=== PATIENT | female | born 1940 | race Caucasian/White ===

== ENCOUNTER 2019-01-23 00:12 | Inpatient (IN) ==
[2019-01-23 01:12] LABS: BASO# 0.02 X1000 (0.0-0.2); BASO% 0.3 % (0.0-0.8); EOS# 0.15 X1000 (0.0-0.7); EOS% 2.4 % (0.0-10.0); HEMATOCRIT 27.6 % (37.0-47.0); HEMOGLOBIN 9.3 g/dL (12.0-16.0); LYMPH# 1.48 X1000 (1.2-3.4); LYMPH% 24.1 % (20.5-51.1); MCHC 33.7 g/dL (33-37); MCV 94.8 FL (81-99); MONO# 0.71 X1000 (0.11-0.59); MONO% 11.5 % (1.7-9.3); MPV 10.8 FL (7.4-10.4); NEUT# 3.79 X1000 (1.4-6.5); NEUT% 61.7 % (42.2-75.2); PLT 203 X1000 (130-400); RBC 2.91 XMIL (4.2-5.4); RDW 14.6 % (11.5-14.5); WBC 6.15 X1000 (4.8-10.8)
[2019-01-23 01:26] LABS: ALB/GLOB RATIO 1.4; ALBUMIN 3.9 g/dL (3.5-5.0); CALCIUM 8.5 mg/dL (8.8-10.2); CREATININE 2.7 mg/dL (0.5-0.9); POTASSIUM 3.3 mmol/L (3.5-5.1); TOTAL BILIRUBIN 0.3 mg/dL (0.20-1.00); TOTAL PROTEIN 6.6 g/dL (6.3-8.3)
--- NOTE | 2019-01-23 02:03 | PROVIDER DOCUMENTATION ---
This chart was entered by Joceline Johnson Scribe, acting as scribe for Azra Ordonez MD. HPI-Chest Pain - General Chief Complaint: Chest Pain Stated Complaint: cp Time Seen by Provider: 01/23/19 00:22 Source: patient Allergies/Adverse Reactions: Patient Allergies Allergy/AdvReac Type Severity Reaction Status Date / Time No Known Allergies Allergy Verified 01/23/19 00:38 Home Medications: Home Medication List Medication Instructions Recorded Confirmed Last Taken Type Insulin Aspart [Novolog Flexpen] 5 units SUBQ BID CC 05/17/18 01/23/19 01/22/19 History Insulin Detemir [Levemir Flextouch] 25 unit SUBQ HS 05/17/18 01/23/19 01/22/19 History ATORVAstatin [Lipitor] 40 mg PO DAILY 12/20/18 01/23/19 01/22/19 History Amiodarone HCl 200 mg PO DAILY 12/20/18 01/23/19 01/22/19 History Amlodipine Besylate 10 mg PO DAILY 12/20/18 01/23/19 01/22/19 History Carvedilol 25 mg PO BID 12/20/18 01/23/19 01/22/19 History Sertraline HCl 100 mg PO DAILY 12/20/18 01/23/19 01/19/19 History Vitamin B Complex 1 tab PO DAILY 12/20/18 01/23/19 01/22/19 History Apixaban [Eliquis] 2.5 mg PO BID 01/23/19 01/23/19 01/22/19 History - History of Present Illness-CP Nature of Presenting Problem: 78 yof c/o intermittent cp all day today. pain is under left breast and doesn't radiate. happens when at rest. Nothing makes it better or worse. pt sts pain stopped upon arrival to [facility]. pt has hx of afib, mi (unsure of date). pt followed by dr. henning. pt also is dialysis pt, MWF. She does not know if she has any stents Review of Systems - Adult - REVIEW OF SYSTEMS - ADULT Constitutional: reports: no symptoms reported Eyes: reports: no symptoms reported Ears, Nose, Mouth & Throat: reports: no symptoms reported Cardiovascular: reports: see HPI, chest pain. denies: palpitations, poor circulation, syncope Respiratory: reports: no symptoms reported Gastrointestinal: reports: no symptoms reported Genitourinary: reports: no symptoms reported Musculoskeletal: reports: no symptoms reported Integumentary: reports: no symptoms reported Neurological: reports: no symptoms reported Psychiatric: reports: no symptoms reported Endocrine: reports: no symptoms reported Hematologic/Lymphatic: reports: no symptoms reported Allergic/Immunologic: reports: no symptoms reported All Other Systems: Reviewed and Negative Past History - Adult - PAST MEDICAL HISTORY-ADULT Review of Records: reports: Old Records Reviewed, Nursing Assessment Review, Medications Reviewed, Social history reviewed & non-contributory. Major Childhood Illnesses: reports: denies history Cardiovascular: reports: A-Fib, HTN Respiratory: reports: denies history Gastrointestinal: reports: denies history Obstetrical/Gynecological: reports: denies history Genitourinary: reports: kidney disease (dialysis mwf) Musculoskeletal: reports: denies history Neurological: reports: denies history Psychiatric: reports: denies history Endocrine/Immune: reports: Diabetes Other Conditions: reports: denies history - PRIOR SURGERIES/PROCEDURES Surgical/Procedure History: reports: cholecystectomy, hysterectomy - IMMUNIZATION STATUS Childhood Immunizations: See Nurse Assessment Flu Vaccine: See Nurse Assessment - FAMILY HISTORY Family History: reviewed, not pertinent - SOCIAL HISTORY Smoking: other (former) Substance Use: none/never Physical Exam-General - PHYSICAL EXAM-ADULT Initial Vital Signs Reviewed: Yes - CONSTITUTIONAL General Appearance: appears well, alert, no apparent distress - EYES Eyes: PERRL/EOMI - HEAD, EARS, NOSE, MOUTH & THROAT HENMT: normocephalic/atraumatic - NECK Neck: full range of motion, supple - RESPIRATORY Respiratory: chest non-tender, lungs clear, normal breath sounds - CARDIOVASCULAR Cardiovascular: normal peripheral pulses, no edema, no murmur, irregularly irregular. negative: regular rate, rhythm, bradycardia, tachycardia - GASTROINTESTINAL (ABDOMEN) Abdominal Exam: normal bowel sounds, non tender, soft. negative: distended - MUSCULOSKELETAL Back Exam: normal inspection Extremity: normal range of motion Peripheral Pulses: radial (R): 2+, radial (L): 2+ - SKIN Integumentary: normal color, normal turgor, warm/dry - NEUROLOGIC Neurologic: grossly normal, no motor/sensory deficits - PSYCHIATRIC Psych/Mental Status: normal mood/affect, normal thought content, normal thought process, oriented x 3 - HEART Score HEART Score: History: Moderately Suspicious HEART Score: ECG: Normal HEART Score: Age: > or = 65 Years HEART Score: Risk Factors for Atherosclerotic Disease: > or = 3 Risk Factors or History of Atherosclerotic Disease HEART Score: Troponin: < or = Normal Limit Total HEART Score:: 5 Progress - PLAN OF CARE/RESULTS Progress/Plan/Lab Results: Vital Signs - 8 hr 01/23/19 00:22 01/23/19 00:47 Temperature 98.4 F Pulse Rate 87 76 Respiratory Rate 16 17 Blood Pressure 145/77 144/64 O2 Sat by Pulse Oximetry 92 L 96 Laboratory Results - last 24 hr 01/23/19 01/23/19 01/23/19 00:35 00:35 00:35 WBC 6.15 RBC 2.91 L Hgb 9.3 L Hct 27.6 L MCV 94.8 MCH 32.0 H MCHC 33.7 RDW Std Deviation 14.6 H Plt Count 203 MPV 10.8 H Immature Gran % (Auto) 0.0 Neut % (Auto) 61.7 Lymph % (Auto) 24.1 Garrett % (Auto) 11.5 H Eos % (Auto) 2.4 Baso % (Auto) 0.3 Immature Gran # (Auto) 0.00 Neut # (Auto) 3.79 Lymph # (Auto) 1.48 Garrett # (Auto) 0.71 H Eos # (Auto) 0.15 Baso # (Auto) 0.02 Sodium 129 L Potassium 3.3 L Chloride 92 L Carbon Dioxide 23 L Anion Gap 14 BUN 45 H Creatinine 2.7 H Estimated GFR/1.73 m2 17 BUN/Creatinine Ratio 17 Glucose 138 H Calculated Osmolality 273 Calcium 8.5 L Total Bilirubin 0.30 AST 32 H ALT 26 Alkaline Phosphatase 207 H Creatine Kinase Troponin T 0.037 Total Protein 6.6 Albumin 3.9 Globulin 2.7 Albumin/Globulin Ratio 1.4 01/23/19 00:35 WBC RBC Hgb Hct MCV MCH MCHC RDW Std Deviation Plt Count MPV Immature Gran % (Auto) Neut % (Auto) Lymph % (Auto) Garrett % (Auto) Eos % (Auto) Baso % (Auto) Immature Gran # (Auto) Neut # (Auto) Lymph # (Auto) Garrett # (Auto) Eos # (Auto) Baso # (Auto) Sodium Potassium Chloride Carbon Dioxide Anion Gap BUN Creatinine Estimated GFR/1.73 m2 BUN/Creatinine Ratio Glucose Calculated Osmolality Calcium Total Bilirubin AST ALT Alkaline Phosphatase Creatine Kinase 56 Troponin T Total Protein Albumin Globulin Albumin/Globulin Ratio Orders Category Date Time Status CHEST-2 VIEWS [RAD] Stat Exams 01/23/19 00:56 Taken CBC WITH ELECTRONIC DIFF [HEME] Stat Lab 01/23/19 00:35 Completed CK PROFILE [SP CHEM] Stat Lab 01/23/19 00:35 Completed COMPREHENSIVE METABOLIC PANEL [CHEM] Stat Lab 01/23/19 00:35 Completed TROPONIN T Stat Lab 01/23/19 00:35 Completed EKG [EKG] Stat Ther 01/23/19 00:03 Ordered Result Diagrams: 01/23/19 00:35 01/23/19 00:35 - EKG 1 Time of EKG reading by physician:: 00:15 EKG Read and Signed by:: Azra Ordonez EKG Interpretation (*Must complete 3 of following elements*): Abnormal Rate: 86 Rhythm: Atrial fibrillation ST Wave: non-specific ST changes Prior EKG Comparison: unchanged from prior - XRAY 1 XRAY Study: Chest (Cardiomegaly with atelectasis) - CONSULTS/PCP/HOSPITALIST Notification #1 *Consult/PCP/Hospitalist*: Dr Spangler Time Discussed: 01:45 Consult Disposition: Admit Departure - Departure Date of Disposition Decision: 01/23/19 Time of Disposition Decision: 01:57 DIAGNOSIS: Chest pain, Atrial fibrillation, End stage renal disease, Chronic anemia Disposition: ADMITTED INPATIENT 09 Certified Medical Emergency: Emergent Condition: Stable Referrals and Follow-Ups: Matthew Henning DO [Primary Care Provider] - - Critical Care Note This patient required my direct & personal management of CC.: No Attestation - Physician/ LYNN Attestation Patient care was provided by Advanced Practice Provider:: No The physician spent face to face time with patient:: Yes Advanced Practice Provider documentation review:: Supervising physician onsite and consulted in the evaluation and care of this patient. The physician did have a face to face encounter with the patient. This chart was documented by the indicated scribe, (Joceline Johnson Scribe) and accurately reflects the services I performed and decisions made by me, Azra Hughes MD, as attested by the provider's signature.
--- NOTE | 2019-01-23 04:37 | HISTORY AND PHYSICAL ---
PRIMARY CARE PHYSICIAN: Dr. Matthew Henning. CHIEF COMPLAINT: Chest pain. HISTORY OF PRESENTING ILLNESS: An 78-year-old female with a history of end-stage renal disease, hypertension, diabetes mellitus type 2, who had presented to emergency department with complaint of having chest pain. She states that it was sharp and intermittent and it seemed to be worsening. She was evaluated in the emergency department and due to her presenting symptoms it was thought that we will place her for observation for further evaluation and management. At the time of my examination, patient denied any headache, fever, chills, nausea, vomiting, diarrhea, hemoptysis, melena or weight changes, but complained of chest pain. PAST MEDICAL HISTORY: Includes end-stage renal disease, on renal dialysis Wednesday, Wednesday, Wednesday, hypertension, diabetes mellitus type 2. PAST SURGICAL HISTORY: Hysterectomy, appendectomy, left eye surgery. ALLERGIES: No known drug allergies. CURRENT MEDICATIONS: Include amiodarone 200 mg p.o. daily, amlodipine 10 mg p.o. daily, Eliquis 2.5 mg p.o. b.i.d., Lipitor 40 mg p.o. daily, carvedilol 25 mg p.o. b.i.d., Levemir 25 units subcutaneous at bedtime, Zoloft 100 mg p.o. daily. SOCIAL HISTORY: She is a former smoker. Admits to social alcohol use. Denies any illicit drug use. FAMILY HISTORY: Positive for coronary artery disease in mother and father. REVIEW OF SYSTEMS: Fourteen point review of system as listed in HPI. Other systems negative. PHYSICAL EXAMINATION: GENERAL: Cooperative, friendly female. She is resting more comfortably now. VITAL SIGNS: Temperature 98.4 degrees, pulse 87, respirations 16, blood pressure 145/77. HEENT: Atraumatic, normocephalic. Extraocular movements intact. PERRLA. NECK: Supple. CHEST: Clear to auscultation. CARDIOVASCULAR: Regular rate and rhythm. ABDOMEN: Soft. Positive bowel sounds. EXTREMITIES: No edema. NEUROLOGIC: She is awake, alert, oriented x3. GENITOURINARY: No bladder distention. SKIN: Warm. LABORATORIES AND STUDIES: Sodium 129, potassium 3.3, chloride 92, CO2 is 23, BUN is 45, creatinine is 2.7, glucose 138. Troponin 0.037. WBC 6.15, hemoglobin 9.3, hematocrit 27.6, platelets 203,000. ASSESSMENT: An 78-year-old female with a history of end-stage renal disease, hypertension, diabetes mellitus type 2, who had presented to the emergency department with a 1-day history of having chest pain. We will place the patient for observation for further evaluation and management. 1. Chest pain. 2. End-stage renal disease. 3. Hypertension. 4. Diabetes mellitus type 2. PLAN: 1. We will admit patient to medical floor with telemetry. 2. Continue with cardiac workup. Check EKG, serial cardiac enzymes. Have patient continue on aspirin. We will use sublingual nitroglycerin p.r.n. chest pain. 3. We will consult Cardiology. 4. Consult Nephrology for dialysis. 5. We will monitor blood pressure and resume antihypertensive agent. 6. We will put patient on glycemic protocol with sliding scale insulin regimen. 7. The patient is on Eliquis and this will suffice for her DVT prophylaxis. cc: James Spangler MD
[2019-01-23 05:52] LABS: URINE SOURCE CLEAN CATCH
[2019-01-23 05:53] LABS: BILIRUBIN URINE NEGATIVE (NEGATIVE); BLOOD URINE NEGATIVE (NEGATIVE); COLOR YELLOW; GLUCOSE URINE NEGATIVE (NEGATIVE); KETONE URINE NEGATIVE (NEGATIVE); LEUKOCYTES URINE NEGATIVE (NEGATIVE); NITRITE URINE NEGATIVE (NEGATIVE); PROTEIN URINE 200 mg/dL (NEGATIVE); SP GRAVITY URINE 1.007; TURBIDITY URINE CLEAR (CLEAR); UROBILINOGEN URINE NORMAL (NORMAL)
[2019-01-23 05:55] LABS: UR EPITHELIAL CELLS <10 /HPF (<10); URINE BACTERIA NEGATIVE /HPF; URINE RBC <10 /HPF (<10); URINE WBC <10 /HPF (<10)
[2019-01-23] MEDS: HUMULIN R SUBQ SCH ×4 (06:00→21:15)
--- NOTE | 2019-01-23 06:28 | Diag Imaging Result Doc PS360 ---
CHEST-2 VIEWS - 01/23/2019 INDICATION: short of breath COMPARISON: 12/29/2018 FINDINGS: Stable right dialysis catheter in good position. Stable cardiomegaly. Pulmonary vascularity is normal. Stable trace left pleural effusion. IMPRESSION: No change from prior. Electronically signed by Steve Freitas 01/23/2019 6:25 AM
[2019-01-23] MEDS ORDERED: NS 2,000 ML MISC PRN (07:25)
[2019-01-23] MEDS ORDERED: HEPARIN IV PRN (07:25)
[2019-01-23] MEDS ORDERED: TIGHT: 0.2 ML/HR FOR DIALYSIS MISC PRN (07:25)
--- NOTE | 2019-01-23 09:17 | EKG Report ---
Test Performed on : 01/23/2019 00:15:30 AM Test Reason : cp Blood Pressure : / mmHG Vent. Rate : 086 BPM Atrial Rate : 113 BPM P-R Int : 000 ms QRS Dur : 088 ms QT Int : 416 ms P-R-T Axes : 000 073 057 degrees QTc Int : 497 ms Atrial fibrillation. Low voltage QRS Anterolateral infarct (cited on or before 17-MAY-2018) Abnormal ECG When compared with ECG of 25-DEC-2018 08:27, (Unconfirmed) Questionable change in initial forces of Lateral leads Unconfirmed Result
[2019-01-23] MEDS: COREG PO SCH ×2 (09:33→21:13)
[2019-01-23] MEDS: ELIQUIS PO SCH ×2 (09:43→21:14)
[2019-01-23] MEDS: CORDARONE PO SCH ×2 (09:49→21:15)
[2019-01-23] MEDS: NORVASC PO SCH ×2 (09:50→21:14)
[2019-01-23] MEDS: ZOLOFT PO SCH ×2 (09:50→21:13)
[2019-01-23] MEDS: VICON-C PO SCH ×2 (09:50→21:14)
[2019-01-23] MEDS: LIPITOR PO SCH ×2 (09:51→21:14)
--- NOTE | 2019-01-23 11:30 | Diag Imaging Result Doc PS360 ---
CT THORAX W/O CONTRAST - 01/23/2019 INDICATION: chest pain, SOB COMPARISON: Chest x-ray from this morning FINDINGS: There is a right-sided dialysis catheter in good position with the tip at the lower SVC. There is cardiomegaly. There are trace bilateral pleural effusions. No adenopathy. Upper abdominal images are grossly normal. There is ill-defined bilateral interstitial infiltrate. There is also some intralobular septal thickening in the lung bases. This is highly characteristic of pulmonary edema/volume overload. The airways are clear. Bony structures are intact. There is advanced spondylosis throughout the thoracolumbar spine. IMPRESSION: Cardiomegaly. Pulmonary edema/volume overload. Trace bilateral pleural effusions. This exam was performed using automated exposure control, adjustment of mA or kV according to patient size, and/or use of iterative reconstruction technique Electronically signed by Steve Freitas 01/23/2019 11:27 AM
[2019-01-23] MEDS: NORCO-5 PO PRN ×2 (16:58→21:15)
--- NOTE | 2019-01-23 17:55 | CARDIOLOGY CONSULTATION ---
DATE: 01/23/2019 CONSULTATION REQUESTED BY: Hospitalist service. REASON FOR CONSULTATION: Patient with chest pain and dyspnea. HISTORY: Ms. Rodriguez presented to the emergency room shortly after midnight with complaint of several days of increasing dyspnea on exertion associated on the hours prior to admission with intermittent chest discomfort. She describes the pain as sharp, waxing and waning, and eventually became steady pain. It did not seem to radiate. She was coughing up some bloody sputum. She felt congested. The patient in the ER received a chest x-ray that shows stable cardiomegaly with "normal" pulmonary vascularity. A chest CT has been requested and that shows cardiomegaly, pulmonary edema, volume overload with trace bilateral pleural effusions. The patient says that the pain that brought her to the emergency room is different than the pain that she experienced with a myocardial infarction 2 months prior. PAST HISTORY: Positive for myocardial infarction about 2 months prior to this presentation. At that time, the coronary arteriogram revealed a totally occluded diagonal vessel distally. It is very suspicious for embolization. She received urgent percutaneous intervention. The other arteries appeared to be relatively free of obstruction. She does have end-stage renal disease and has been on hemodialysis. She has diabetes mellitus type 2, hypertension, dyslipidemia. SURGICAL HISTORY: Hysterectomy, appendectomy, and left eye surgery. SOCIAL HISTORY: She is , lives with . She has been a smoker and occasional alcohol. FAMILY HISTORY: Both parents had coronary heart disease. ALLERGIES: Negative. HOME MEDICATIONS: Listed, amiodarone 200 daily, amlodipine 10 mg daily, apixaban 2.5 twice a day, atorvastatin 40 mg daily, carvedilol 25 twice a day, insulin aspartate 5 units twice a day and detemir 25 units at bedtime. Sertraline 100 daily, vitamin B complex once a day. ALLERGIES: No reported allergies. REVIEW OF SYSTEMS: Lately, she has felt like she is having "chest congestion." She has been bothered by severe back pain with pain and weakness of both lower extremities. She has been evaluated by Dr. Rodriges a neurosurgeon in [place] and they were planning on performing back surgery in the ensuing days or weeks. She was awaiting cardiac clearance. No other positives. The patient does have a history of previous bouts of atrial fibrillation requiring cardioversion. At this time, she is seemingly in permanent atrial fibrillation. PHYSICAL EXAMINATION: Vital signs: Blood pressure 166/73, pulse 88, temperature 97.6 degrees, respirations 18. General: She is awake, appears to be chronically ill, elderly, in no distress. Neck: Veins slightly prominent. Chest: Diminished breath sounds especially at the right base. Occasions of crepitans scattered. Some rhonchi and some occasional end-expiratory wheezing. Heart: Sounds are irregularly irregular without gallop or murmur. Abdomen: Soft. There is no peripheral edema. Neurologic: Nonfocal. Moves 4 extremities. LABORATORY DATA: Hemoglobin 9.3, hematocrit 27.6, white cell count 6150. Sodium 139, potassium 3.3, chloride 92, carbon dioxide 23, BUN 45, creatinine 2.7. Troponins have been checked a total of 3 times: 0.037; 0.037; 0.037. This is like 5 hours apart from each other. C-reactive protein is 14.22 mg/L. Her proBNP has not been checked. IMPRESSION: 1. Patient who presents with chest pain that is different from the pain that she experienced during myocardial infarction 2 months ago. 2. Increasing dyspnea with radiographic features of fluid overload. 3. Slight hemoptysis probably related to congestive heart failure, fluid overload. 4. End-stage renal disease on hemodialysis. 5. Diabetes mellitus type 2. 6. Chronic back pain with anticipated back surgery in the next few days. RECOMMENDATION: At this time, I would pursue a myocardial perfusion stress test. This should help us to make sure that there is no residual ischemia on her and they may proceed with the back surgery whenever appropriate by Dr. Reynoso and the neurosurgeons from [place]. At this time, she appears to be fluid overloaded, so she really needs to proceed with hemodialysis. Further advice will be forthcoming. cc: Peter Lloyd MD
--- NOTE | 2019-01-23 18:41 | NEPHROLOGY CONSULTATION ---
DATE: 01/23/2019 REASON FOR ADMISSION: Chest pain. REASON FOR CONSULTATION: Assist with management, end-stage renal disease. CONSULTING PHYSICIAN: James Spangler MD HISTORY OF PRESENT ILLNESS: This is an 78-year-old female well known to our service for end-stage renal disease on hemodialysis Wednesday, Wednesday, Wednesday. She came into the emergency room secondary of chest pain. She was admitted for further workup and treatment. Today is her routine dialysis day. We have been asked to see her and assist with management. Cardiology has already seen the patient. They plan on a chest CT secondary to her chest pain being atypical and somewhat different than her previous admissions with cardiac issues. They will have her undergo a portion of a resting nuclear scan today as well. The patient denies any nausea, vomiting, fevers or chills. Continues to have some modest chest pain that does not radiate. PAST MEDICAL HISTORY: End-stage renal disease Wednesday, hypertension, diabetes, atrial fibrillation, depression and anxiety. PAST SURGICAL HISTORY: Hysterectomy, appendectomy, left eye surgery. She has a tunneled catheter to the right upper chest wall. ALLERGIES: None. HOME MEDICATIONS: Listed as amiodarone, amlodipine, Eliquis, Lipitor, carvedilol, Levemir and Zoloft. FAMILY HISTORY: Coronary artery disease. SOCIAL HISTORY: She is a former smoker. Social ETOH. No illicit drug use. REVIEW OF SYSTEMS: Pertinent positives noted above in the HPI. PHYSICAL EXAMINATION: Vital Signs: Temperature 97.6 degrees, pulse 88, respiratory rate 19, blood pressure 166/73. Intake not measured. Output 200 mL voided. General: This is an elderly female, sitting up in bed. She is awake and alert. She is in no acute distress. HEENT: Normocephalic, atraumatic. Her conjunctivae are pale. Oral mucosa moist. Neck: Supple. There is no JVD. Cardiovascular: Reveals controlled rate. No murmur or gallop. Pulmonary: She is clear bilaterally. Abdomen: Soft, obese. Positive bowel sounds. Genitourinary: Not inspected. Extremities: No clubbing or cyanosis. She may have some trace pedal edema. Integumentary: Skin is warm and dry, pale. Neurologic: Grossly nonfocal. LABORATORY DATA: WBC of 6.1, hemoglobin 9.3, sodium 129, potassium 3.3, CO2 23, BUN 45, creatinine 2.7. ASSESSMENT AND PLAN: 1. End-stage renal disease management. Today is her routine dialysis day. We will dialyze her on a 2 K bath/UF to her dry weight/3.5 hour treatment. I did discuss with Cardiology that we would wait until after they completed their testing and evaluations this morning, and we will plan to run her this afternoon. 2. Atypical chest pain followed by Cardiology and primary. 3. Electrolytes, acid-base balance anemia. See above for plan. Continue her EPO. Dictated by BRAD Dodson for Rex Caceres MD Face to face encounter, data reviewed, discussed with Fernanda Ponce on 01/23/19. I agree with the above assessment and plan of care. cc: Rex Caceres MD [facility]
[2019-01-24] MEDS: NORCO-5 PO PRN ×5 (04:29→22:42)
[2019-01-24] MEDS: HUMULIN R SUBQ SCH ×5 (06:53→20:05)
[2019-01-24 07:00] LABS: HEMATOCRIT 26.9 % (37.0-47.0); HEMOGLOBIN 8.7 g/dL (12.0-16.0); MCHC 32.3 g/dL (33-37); MCV 98.9 FL (81-99); MPV 10.3 FL (7.4-10.4); RBC 2.72 XMIL (4.2-5.4); RDW 14.9 % (11.5-14.5); WBC 6.09 X1000 (4.8-10.8)
[2019-01-24 07:20] LABS: CALCIUM 8.1 mg/dL (8.8-10.2); POTASSIUM 2.9 mmol/L (3.5-5.1)
--- NOTE | 2019-01-24 07:37 | EKG Report ---
Test Performed on : 01/24/2019 07:05:53 AM Test Reason : chest pain Blood Pressure : / mmHG Vent. Rate : 084 BPM Atrial Rate : 117 BPM P-R Int : 000 ms QRS Dur : 094 ms QT Int : 420 ms P-R-T Axes : 000 -72 096 degrees QTc Int : 496 ms Atrial fibrillation. Left anterior fascicular block Septal infarct (cited on or before 17-MAY-2018) Lateral infarct (cited on or before 17-MAY-2018) Abnormal ECG When compared with ECG of 23-JAN-2019 00:15, (Unconfirmed) Left anterior fascicular block is now present Confirmed by Sanjuanita BOSS, Don Singh ([id number]) on 01/25/2019 9:43:08 AM
[2019-01-24] MEDS ORDERED: LEXISCAN ONE ×2 (08:19→11:43)
--- NOTE | 2019-01-24 08:34 | Diag Imaging Result Doc PS360 ---
EXAM: CHEST-2 VIEWS HISTORY: reassess pulmonary edema TECHNIQUE: Chest two views COMPARISON: 01/23/2019 FINDINGS: There is a small left pleural effusion. The heart is enlarged. Mild vascular distention. This is slightly less prominent than on the prior study. No change in the right jugular line. IMPRESSION: Mild interval improvement. Electronically signed by Fermin Burkett 01/24/2019 8:32 AM
[2019-01-24] MEDS ORDERED: POTASSIUM CHLORIDE 10% LIQUID PO ONE (08:36)
--- NOTE | 2019-01-24 09:10 | NEPHROLOGY PROGRESS NOTE ---
DATE: 01/24/2019 SUBJECTIVE: The patient is currently sitting up in bed. She continues to have some chest heaviness. OBJECTIVE: Vital Signs: Temperature 98.5 degrees, pulse 88, respiratory rate 18, blood pressure 120/69. Intake 400 mL, output 5.6 L on dialysis. General: Elderly female, sitting up in bed, awake and alert. She is in no acute distress. HEENT: Normocephalic, atraumatic. NEAL. Oral mucosa moist. Neck: Supple, without JVD. Cardiovascular: Regular rate and rhythm. Pulmonary: She has decreased breath sounds, but no rales or rhonchi. Abdomen: Soft with positive bowel sounds. : Not inspected. Extremities: Trace edema. Integumentary: Skin is warm and dry. LABORATORY DATA: Pending. ASSESSMENT AND PLAN: 1. Chronic kidney disease stage 5D. We dialyzed yesterday. We did pull 5.6 liters. Concerning that she may still have some additional fluid on. We are ordering a chest x- ray this morning. If it appears so, we will dialyze her today for ultrafiltration removal only. 2. Anemia of chronic disease. Continue Epogen. CXR modestly improved. Repeat dialysis today. rg Dictated by BRAD Dodson for Rex Caceres MD cc: Rex Caceres MD [facility]
[2019-01-24] MEDS ORDERED: HEPARIN IV PRN (09:14)
[2019-01-24] MEDS ORDERED: NS 2,000 ML MISC PRN (09:14)
[2019-01-24] MEDS ORDERED: TIGHT: 0.2 ML/HR FOR DIALYSIS MISC PRN (09:14)
[2019-01-24] MEDS: COREG PO SCH ×2 (09:48→20:03)
[2019-01-24] MEDS: ELIQUIS PO SCH ×2 (09:50→20:03)
--- NOTE | 2019-01-24 13:44 | PROGRESS NOTE ---
DATE: 01/24/2019 SUBJECTIVE: Ms. Rodriguez was admitted on 01/23/2019, is a patient of Dr. Matthew Torres. She came in with chest pain. An 78-year-old with history of end-stage renal disease, hypertension, diabetes mellitus type 2, presented to emergency department complaining of having chest pain. States that she had sharp, intermittent pain. It seemed to be worsening. Evaluated the emergency room, placed on observation. She is presently getting GXT by report. No further pain. OBJECTIVE: Vital Signs: Temperature 98.2 degrees, pulse 79, respirations 18, blood pressure 124/66. HEENT: Pupils are equal. Lungs: Clear in all lung medina. Cardiovascular: Regular rhythm and rate without murmur or S3. Abdomen: Soft. Skin: Warm and dry. RADIOLOGIC STUDIES: Her chest x-ray this morning showed mild improvement. Small left pleural effusion. Heart enlarged. Mild vascular distention. ASSESSMENT AND PLAN: 1. Nephrology is following. Feels has end-stage renal disease. Gets dialysis and underwent dialysis yesterday. 2. Atypical chest pain. 3. Electrolytes and acid base look good. Cardiology has evaluated. This pain is different than what she experienced in her myocardial infarction 2 months ago and increasing dyspnea. Radiographic features suggest fluid overload. Slight hemoptysis related to congestive heart failure and fluid overload. 4. Diabetes mellitus type 2. Continue to follow sugars. 5. Chronic back pain. Anticipating back surgery soon. So we will see what the myocardial perfusion test shows. Reviewed her current orders. She is on amiodarone 200 mg a day, Norvasc 10 mg a day, Eliquis 2.5 mg b.i.d., Lipitor 40 mg a day, Coreg 25 mg b.i.d., Epogen 10,000 units subcutaneously Wednesday, Wednesdays, and Fridays, hydrocodone 5 mg q.4 h. p.r.n., Zoloft 100 mg a day. REVIEW OF LABS: Hematocrit 26, hemoglobin 8.7. Electrolytes: Sodium 134, potassium 2.9, chloride 95, BUN 25, creatinine 2.0. cc: Don Gann MD
--- NOTE | 2019-01-24 15:06 | Diag Imaging Result Document ---
PROCEDURE NAME: MYOCARDIAL PERF SCAN, STR/REST - 01/23/2019 STUDY: Two day rest/stress Lexiscan myocardial perfusion study. INDICATION: The patient presented with chest pain. She has end-stage renal disease. She has suffered an acute myocardial infarction about 2 months prior to this admission requiring percutaneous intervention at the level of the territory of the second diagonal branch of the LAD. DESCRIPTION: The patient came into the nuclear laboratory on 01/23, received a resting injection of technetium 99 sestamibi 25 mCi. Multiple tomographic views of the heart were obtained at rest. Subsequently, the patient underwent Lexiscan protocol at 0.4 mg on 01/24. At that time, she received an injection of 27.2 mCi technetium 99 sestamibi at peak infusion. Multiple tomographic views of the cardiac structure were obtained following the completion of the protocol. SUMMARY OF THE ELECTROCARDIOGRAPHIC PORTION OF THE STUDY: Resting electrocardiogram showed sinus rhythm, rate is 83 beats per minute. Resting ECG shows evidence of an anterolateral myocardial infarction with a left axis deviation. Resting blood pressure 138/57. During the protocol, the heart rate increased to a maximum of 83 beats per minute. Blood pressure changed from baseline down to 112/52. Heart rate also slowed down to 72 beats per minute. The patient reported no chest pain, shortness of breath, or palpitations. Actually, the ECG showed atrial fibrillation with controlled rate. There was no sinus rhythm identified on this tracing. In summary, electrocardiographic response to infusion of Lexiscan is deemed to be negative for pharmacologic-induced myocardial ischemia. The patient is in atrial fibrillation. There is evidence of an anterolateral myocardial infarction. SUMMARY OF THE MYOCARDIAL PERFUSION PORTION OF THE STUDY: Poststress tomographic views of the left ventricle showed a moderate in size severe in intensity distal anterolateral defect. The rest images showed that this defect is fixed. There is no evidence of reversibility. The polar plots revealed the same. There are no areas of inducible ischemia. There is a moderate size distal anterolateral scar. Gated SPECT shows on the rest images ejection fraction of 53% with anteroapical dyskinesis. Poststress ejection fraction is 57%. Ventricular volumes are increased. The Myometrix protocol showed basically similar findings. The resting ejection fraction was 53% and the poststress is 59%, so the pretty much coincide. That is a normal change from rest to stress. The lung/heart ratio is elevated at 0.48. TID is 0.98. SUMMARY: This study shows: 1. Abnormal resting electrocardiogram. The patient is in atrial fibrillation with controlled rate with evidence of an anterolateral scar. No ischemia noted with the infusion of Lexiscan by ECG criteria. 2. Abnormal poststress myocardial perfusion scan. There is scintigraphic evidence of an anterolateral scar of moderate extent in the distal portion of the anterolateral wall. That would be consistent with the patient's history of a myocardial infarction in the territory of the diagonal branch of the LAD. There is no inducible ischemia. 3. Generally preserved left ventricular systolic function, ejection fraction poststress 57% with anteroapical dyskinesis consistent with a previous anterolateral scar. Clinical correlation is strongly recommended. cc: MD Sushma Sloan PA MTDD
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
[2019-01-24] MEDS: NORVASC PO SCH (18:41)
[2019-01-24] MEDS: LIPITOR PO SCH (18:42)
[2019-01-24] MEDS: VICON-C PO SCH (18:43)
[2019-01-24] MEDS: CORDARONE PO SCH (18:43)
[2019-01-24] MEDS: ZOLOFT PO SCH (18:44)
--- NOTE | 2019-01-24 20:40 | Diag Imaging Result Doc PS360 ---
EXAM: CT THORAX W/O CONTRAST INDICATION: hemoptysis TECHNIQUE: This exam was performed using automated exposure control, adjustment of mA or kV according to patient size, and/or use of iterative reconstruction technique. COMPARISON: 01/23/2019 FINDINGS: The patchy groundglass infiltrates seen bilaterally on the previous recent study, more prominent on the right, have improved slightly. No new consolidations are appreciated. Bilateral small pleural effusions are again identified. The effusion on the right has decreased in size. The effusion on the left is approximately stable. There is pleural thickening around the fluid collection at the left lung base suggesting a possible complex effusion. There is a stable small pericardial effusion and stable cardiomegaly. Shotty nonspecific mediastinal and hilar lymph nodes are unchanged. IMPRESSION: 1.Modest improvement of the bilateral infiltrates, worse on the right. 2.Interval decrease in size of the small right pleural effusion and stable small left pleural fluid collection with pleural thickening at its periphery. Electronically signed by Seferino Johnson 01/24/2019 8:37 PM
--- NOTE | 2019-01-24 20:50 | Diag Imaging Result Doc PS360 ---
EXAM: CT MAXILLOFACIAL(SINUS) W/O CO INDICATION: sinusitis TECHNIQUE: COMPARISON: None. FINDINGS: The paranasal sinuses are clear. There is no sinus mucosal thickening and no air-fluid levels in the paranasal sinuses. The ostiomeatal units are patent bilaterally. The mastoid air cells are clear. The visualized bony structures are intact. Surrounding soft tissues are essentially unremarkable. IMPRESSION: Essentially unremarkable CT of the paranasal sinuses with no CT evidence of sinusitis. Electronically signed by Seferino Johnson 01/24/2019 8:48 PM
[2019-01-25] MEDS: NORCO-5 PO PRN ×4 (05:49→20:10)
[2019-01-25] MEDS ORDERED: HEPARIN IV PRN (06:16)
[2019-01-25] MEDS ORDERED: NS 2,000 ML MISC PRN (06:16)
[2019-01-25] MEDS ORDERED: TIGHT: 0.2 ML/HR FOR DIALYSIS MISC PRN (06:16)
[2019-01-25] MEDS: HUMULIN R SUBQ SCH ×4 (06:35→20:11)
--- NOTE | 2019-01-25 07:52 | EKG Report ---
Test Performed on : 01/25/2019 06:33:25 AM Test Reason : chest pain Blood Pressure : / mmHG Vent. Rate : 084 BPM Atrial Rate : 088 BPM P-R Int : 000 ms QRS Dur : 086 ms QT Int : 406 ms P-R-T Axes : 000 124 073 degrees QTc Int : 479 ms Atrial fibrillation. Low voltage QRS Anterolateral infarct (cited on or before 17-MAY-2018) Abnormal ECG When compared with ECG of 24-JAN-2019 07:05, (Unconfirmed) Left anterior fascicular block is no longer present Confirmed by Sanjuanita BOSS, Don Singh ([id number]) on 01/25/2019 9:44:33 AM
[2019-01-25] MEDS: ZOLOFT PO SCH (08:29)
[2019-01-25] MEDS: VICON-C PO SCH (08:29)
[2019-01-25] MEDS ORDERED: EPOGEN SUBQ SCH (09:00)
[2019-01-25] MEDS: ELIQUIS PO SCH ×2 (13:24→20:10)
[2019-01-25] MEDS: CORDARONE PO SCH (13:24)
[2019-01-25] MEDS: NORVASC PO SCH (13:24)
[2019-01-25] MEDS: COREG PO SCH ×2 (13:24→20:10)
[2019-01-25] MEDS: LIPITOR PO SCH (13:24)
--- NOTE | 2019-01-25 16:33 | PROGRESS NOTE ---
DATE: 01/25/2019 SUBJECTIVE: Ms. Mcqueen is feeling much better. Breathing comfortably. She has finished up her tests, and everything looks good from a cardiac standpoint. OBJECTIVE: Temperature 98.3 degrees, pulse 98, respirations 18, blood pressure 130/51. Pupils are equal and round. Lungs are clear in all lung medina. Cardiovascular: Regular rhythm and rate without murmur or S3. Abdomen is soft. Skin is warm and dry. Dialysis removed 4 L yesterday. ASSESSMENT AND PLAN: 1. Dr. Álvarez was consulted. They were trying to prepare her for some back surgery, and she had an elevated CRP. She did have some tenderness in the left maxillary sinus area and the patient was having some night sweats, so Dr. Álvarez ordered a maxillofacial CT and chest CT. Essentially unremarkable CT of paranasal sinuses. No CT evidence of sinusitis. Chest CT: Modest improvement of bilateral infiltrates, worse on the right. Interval decrease in size of small right pleural effusion. Stable small left pleural fluid. I think blood cultures were ordered. We will discuss with Dr. Álvarez. Hopefully, she can go home tomorrow. They wanted know if they can pursue lower back surgery per Dr. Reynoso. 2. Atypical chest pain. No sign of active cardiac ischemia. 3. End-stage renal disease. Electrolytes and acid/base look good. 4. Diabetes mellitus, type 2. Sugars under good control. 5. Lower back pain, degenerative disk disease, and surgery is being planned per Dr. Reynoso. REVIEW OF ORDERS: I do not see any change. cc: Don Gann MD
--- NOTE | 2019-01-25 17:25 | NEPHROLOGY PROGRESS NOTE ---
DATE: 01/25/2019 SUBJECTIVE: She states she is feeling well. No shortness of breath. On room air. Still having some pain in her flank. OBJECTIVE: Blood pressure 110/56, heart rate 91, respirations 18, afebrile. Generally, no acute distress. Skin is warm and dry. Neck veins are not distended. Heart is regular. No gallops. Lungs are equal. No crackles or wheezes. Abdomen is soft, nontender. Bowel sounds present.Extremities: No edema, clubbing or cyanosis. IMPRESSION AND PLAN: Chronic kidney disease stage 5D. Volume overload. Dialysis again today. Four potassium bath. Goal of 2 to 3 L ultrafiltration. cc: Rex Caceres MD
--- NOTE | 2019-01-25 18:09 | INFECTIOUS DISEASE PROGRESS NO ---
DATE: 01/25/2019 PRESENT ILLNESS: The patient has hemoptysis which is clearing. I think it is due to pulmonary venous congestion. At this time, I doubt that the patient has an active infection. MEDICATIONS: The patient is not receiving any antibiotics. PHYSICAL EXAMINATION: Vital Signs: Temperature is 98.3 degrees, pulse 91, respirations 18, blood pressure 110/56. General: This is a somewhat ill-appearing elderly female. She is in no acute distress. Head, Eyes, Ears, Nose, and Throat: I did not see any white patches on her tongue. She does not have any drainage from her nose or ears. Neck: She does not have any pain in her neck when she moves her head. Lungs: Clear to auscultation. Cardiovascular: Heart rate is irregular. Abdomen: Soft and nontender. Thorax: Patient has a tunneled dialysis catheter present on the right side. The site is not draining or tender. Neurologic: Patient is alert. She can move her extremities. There is no tremor. DIAGNOSTIC STUDIES: The CT of the sinuses shows no sinusitis. CT of the chest shows improvement in the bilateral infiltrates. CBC shows a white count of 6090, hemoglobin 8.7, and platelet count 221,000. Creatinine is 2, GFR is 24. Urinalysis is negative for bacteria and white cells. ASSESSMENT AND PLAN: At this time, I doubt the patient has an active infection. I am going to go ahead tomorrow morning and get blood cultures and a QuantiFERON Fold study. As mentioned above, I do not think the patient has an active infection. I am signing off the patient's case, but I am available to see her on a p.r.n. basis. If her blood cultures return positive or the QuantiFERON, I will get in touch with the patient as soon as possible. PATIENT'S COMORBIDITIES: 1. She is elderly. 2. She has had a myocardial infarction. 3. She also is a diabetic. cc: Tremayne Álvarez MD
[2019-01-26] MEDS: NORCO-5 PO PRN ×3 (03:49→13:40)
[2019-01-26] MEDS: HUMULIN R SUBQ SCH ×2 (06:08→10:53)
[2019-01-26] MEDS: NORVASC PO SCH (08:27)
[2019-01-26] MEDS: ELIQUIS PO SCH (08:27)
[2019-01-26] MEDS: VICON-C PO SCH (08:27)
[2019-01-26] MEDS: LIPITOR PO SCH (08:27)
[2019-01-26] MEDS: ZOLOFT PO SCH (08:28)
[2019-01-26] MEDS: COREG PO SCH (08:28)
[2019-01-26] MEDS: CORDARONE PO SCH (08:28)
[2019-01-26 12:23] VITALS: BP 116/41
--- NOTE | 2019-01-26 12:58 | NEPHROLOGY PROGRESS NOTE ---
DATE: 01/26/2019 SUBJECTIVE: She is expecting discharge today. No further pain. No shortness of breath. OBJECTIVE: Vital Signs: Blood pressure 119/95, heart rate 84, afebrile. General: No acute distress. Skin: Warm and dry. HEENT: Conjunctivae are pink. Heart: Regular. No gallops. Lungs: Equal. No crackles. Abdomen: Soft, nontender. Bowel sounds present. Extremities: No edema, clubbing, or cyanosis. IMPRESSION: Chronic kidney disease 5D. Her next planned dialysis treatment is tomorrow which she can attend at the outpatient clinic. Otherwise, no new data are available. We will change her outpatient dialysis potassium to 3.0. cc: Rex Caceres MD
--- NOTE | 2019-01-26 14:02 | DISCHARGE SUMMARY ---
ADMISSION DATE: 01/23/2019 DISCHARGE DATE: Ms. Rodriguez is anxious to go home, feels much better, breathing comfortably, no pain. Her doctor is Dr. Matthew Torres. She presented on 01/23/2019, plan on discharging her today on 01/26/2019. This is an 78-year-old female, with history of end-stage renal disease, hypertension, diabetes mellitus type 2, who presented to the emergency department with a complaint of having chest pain, states it was sharp and intermittent and seemed to be getting more frequent. She was evaluated in the emergency room, presenting symptoms and evaluation felt they should admit and rule out unstable angina. She denied any fever, chills, nausea, vomiting, diarrhea, hemoptysis, melena, or weight loss. ADMISSION DIAGNOSES: 1. Chest pain, which was atypical. 2. End-stage renal disease. Plan to continue hemodialysis. Electrolytes and volume status look good. 3. Hypertension. 4. Diabetes mellitus, type 2. We will watch pattern sugars. She underwent myocardial perfusion scan on 01/23, and there was an abnormal resting EKG. The patient was in atrial fibrillation with controlled rate. Abnormal post stress myocardial perfusion scan. There is evidence of anterolateral scar, moderate extent in the distal portion of the anterolateral wall, which could be consistent with the patient's history of previous myocardial infarction in the territory of the diagonal branch of the LAD. There was no inducible ischemia just old scar. Cardiology was consulted and they felt the patient had no evidence of new ischemia and felt she might have a little volume overload on presentation. The pain she was having was different than the pain she had during her myocardial infarction 2 months ago. Blood sugars remain well controlled. CT of the chest on 01/24 showed modest improvement of bilateral infiltrates, worse on the right, interval decrease in size of small right pleural effusion. Stable small left pleural effusion. She continued to undergo diuresis per Dr. Rex Caceres for chronic kidney disease stage 5D, and volume status and electrolytes looked good. Dr. Tremayne Álvarez was consulted because as an outpatient she is being worked up per Dr. Reynoso for back surgery and treatment. She had an elevated CRP. He ordered a noncontrast CT of the chest, and noncontrast CT scan of the maxillofacial sinuses, and a QuantiFERON level. Some of these studies are still pending. Volume status looked good from Dr. Caceres's standpoint, felt the patient could go home, so we will discharge home. DISCHARGE MEDICATION: Cordarone 200 mg a day. Norvasc 10 mg a day. Eliquis 2.5 mg b.i.d. Lipitor 40 mg a day. Coreg 25 mg b.i.d. She gets her Epogen with dialysis Mondays, Wednesdays and Fridays, gets 10,000 units. Zoloft 100 mg a day, Vicon C one a day. FOLLOW UP: She will follow up with Dr. Reynoso, and follow up with Dr. Álvarez. cc: Don Gann MD
== END 2019-01-26 14:26 | disposition home or self-care (01) | DRG 313 ==
LOC: SUPCPDRO → ED 00:12 → SUATTDRO 03:36 → 3N 03:36
PROVIDERS: ATTEND Emergency Medicine
CPT/HCPCS: 70486; 71020; 71046; 71250; 78451; 78452; 80048; 80053; 81001; 82550; 82948; 84484; 85025; 85027; 85651; 86140; 86480; 87040; 93005; 93010; 93017; 99285; A9270; A9500; J0885; J1644; J2785; J7030; XXXXX

== ENCOUNTER 2019-02-14 07:33 | Inpatient (IN) ==
[2019-02-14] MEDS ORDERED: ASPIRIN PO ONE (07:54)
--- NOTE | 2019-02-14 08:06 | Diag Imaging Result Doc PS360 ---
CHEST-1 VIEW - 02/14/2019 INDICATION: chest pain COMPARISON: 01/24/2019 FINDINGS: Stable right dialysis catheter. Stable cardiomegaly. Pulmonary vascularity is grossly normal. No infiltrates or edema. No pneumothorax or significant pleural effusion. IMPRESSION: Cardiomegaly. Electronically signed by Steve Freitas 02/14/2019 8:03 AM
--- NOTE | 2019-02-14 08:09 | PROVIDER DOCUMENTATION ---
HPI-Chest Pain - General Chief Complaint: Chest Pain Stated Complaint: CP Time Seen by Provider: 02/14/19 07:47 Source: patient, family Allergies/Adverse Reactions: Patient Allergies Allergy/AdvReac Type Severity Reaction Status Date / Time No Known Allergies Allergy Verified 01/23/19 00:38 Home Medications: Home Medication List Medication Instructions Recorded Confirmed Last Taken Type Insulin Aspart [Novolog Flexpen] 5 units SUBQ BID CC 05/17/18 02/14/19 01/22/19 History Insulin Detemir [Levemir Flextouch] 25 unit SUBQ HS 05/17/18 02/14/19 01/22/19 History ATORVAstatin [Lipitor] 40 mg PO DAILY 12/20/18 02/14/19 01/22/19 History Amiodarone HCl 200 mg PO DAILY 12/20/18 02/14/19 01/22/19 History Amlodipine Besylate 10 mg PO DAILY 12/20/18 02/14/19 01/22/19 History Carvedilol 25 mg PO BID 12/20/18 02/14/19 01/22/19 History Sertraline HCl 100 mg PO DAILY 12/20/18 02/14/19 01/19/19 History Vitamin B Complex 1 tab PO DAILY 12/20/18 02/14/19 02/13/19 History Apixaban [Eliquis] 2.5 mg PO BID 01/23/19 02/14/19 01/22/19 History Hydrocodone/Acetaminophen [Nyssa 1 tab PO DAILY 02/14/19 02/14/19 02/13/19 History 7.5-325 Tablet] - History of Present Illness-CP Nature of Presenting Problem: Pt was on her way to get Ultrasound this am for lt arm fistula and started having Lt sided chest pain that radiates through to her back. Pt denies SOB, nausea, or sweats. Pt adds that she recently had UT in October. Location: reports: other (lt side chest) Chest Pain Radiation: reports: back (Pt reports pain radiates through to back) Quality of Pain: reports: aching Severity in ED: mild Onset/Duration: 1-3 hours ago Timing: still present Context/Activities at Onset: reports: light activity Modifying Factors: improves with: breathing Nitro Today/Relief: no nitro taken today Aspirin Treatment Today: no aspirin today, provided by ED Prior Chest Pain/Cardiac Workup: reports: heart attack Similar Symptoms Previously?: Yes Recently Seen Here or By Another Healthcare Provider: Yes Review of Systems - Adult - REVIEW OF SYSTEMS - ADULT Constitutional: reports: no symptoms reported, see HPI Eyes: reports: no symptoms reported, see HPI Ears, Nose, Mouth & Throat: reports: no symptoms reported, see HPI Cardiovascular: reports: see HPI, chest pain Respiratory: reports: no symptoms reported, see HPI Gastrointestinal: reports: no symptoms reported, see HPI Genitourinary: reports: no symptoms reported, see HPI Musculoskeletal: reports: no symptoms reported, see HPI Integumentary: reports: no symptoms reported, see HPI Neurological: reports: no symptoms reported, see HPI Psychiatric: reports: no symptoms reported, see HPI Endocrine: reports: no symptoms reported, see HPI Hematologic/Lymphatic: reports: no symptoms reported, see HPI Allergic/Immunologic: reports: no symptoms reported, see HPI All Other Systems: Reviewed and Negative Past History - Adult - PAST MEDICAL HISTORY-ADULT Review of Records: reports: Nursing Assessment Review, Medications Reviewed, Social history reviewed & non-contributory. Major Childhood Illnesses: reports: denies history Cardiovascular: reports: HTN Respiratory: reports: denies history Gastrointestinal: reports: denies history Genitourinary: reports: denies history Musculoskeletal: reports: denies history Neurological: reports: denies history Psychiatric: reports: denies history Endocrine/Immune: reports: Diabetes Physical Exam-General - PHYSICAL EXAM-ADULT Initial Vital Signs Reviewed: Yes - CONSTITUTIONAL General Appearance: appears well, alert, no apparent distress - EYES Eyes: PERRL/EOMI - HEAD, EARS, NOSE, MOUTH & THROAT HENMT: normocephalic/atraumatic, moist mucous membranes - NECK Neck: non-tender, full range of motion, supple, normal inspection - RESPIRATORY Respiratory: chest non-tender, lungs clear, normal breath sounds, no pleuratic chest pain, no respiratory distress, no accessory muscle use - CARDIOVASCULAR Cardiovascular: normal peripheral pulses, regular rate, rhythm, no edema, no gallop, no JVD, no murmur - GASTROINTESTINAL (ABDOMEN) Abdominal Exam: normal bowel sounds, non tender, soft, no organomegaly, no pulsatile mass - LYMPHATIC Lymphatic: no adenopathy - MUSCULOSKELETAL Back Exam: normal inspection, no CVA tenderness, no vertebral tenderness Extremity: normal range of motion, non-tender, normal gait, normal inspection, no pedal edema, no calf tenderness, normal capillary refill - SKIN Integumentary: normal color, normal turgor - NEUROLOGIC Neurologic: digital marketing specialist II-XII nml as tested, grossly normal, no motor/sensory deficits - PSYCHIATRIC Psych/Mental Status: normal mood/affect, normal thought content, normal thought process, oriented x 3 - HEART Score HEART Score: History: Moderately Suspicious HEART Score: ECG: Non-Specific Repolarization Disturbance/LBBB/PM HEART Score: Age: > or = 65 Years HEART Score: Risk Factors for Atherosclerotic Disease: > or = 3 Risk Factors or History of Atherosclerotic Disease HEART Score: Troponin: < or = Normal Limit Total HEART Score:: 6 Progress - PLAN OF CARE/RESULTS Progress/Plan/Lab Results: Vital Signs - 8 hr 02/14/19 07:43 Temperature 98.0 F Pulse Rate 83 Respiratory Rate 20 Blood Pressure 158/81 O2 Sat by Pulse Oximetry 100 Laboratory Results - last 24 hr 02/14/19 02/14/19 02/14/19 07:50 07:50 07:50 WBC 5.97 RBC 3.52 L Hgb 11.5 L Hct 33.9 L MCV 96.3 MCH 32.7 H MCHC 33.9 RDW Std Deviation 14.9 H Plt Count 191 MPV 10.3 Immature Gran % (Auto) 0.3 Neut % (Auto) 67.6 Lymph % (Auto) 21.3 Coffey % (Auto) 9.5 H Eos % (Auto) 1.0 Baso % (Auto) 0.3 Immature Gran # (Auto) 0.02 Neut # (Auto) 4.03 Lymph # (Auto) 1.27 Coffey # (Auto) 0.57 Eos # (Auto) 0.06 Baso # (Auto) 0.02 PT INR PTT (Actin FS) D-Dimer, Quantitative Sodium 131 L Potassium 4.3 Chloride 93 L Carbon Dioxide 22 L Anion Gap 16 BUN 28 H Creatinine 2.3 H Estimated GFR/1.73 m2 20 BUN/Creatinine Ratio 12 Glucose 228 H Calculated Osmolality 275 Calcium 9.9 Total Bilirubin 0.53 AST 20 ALT 14 Alkaline Phosphatase 131 H Troponin T Bmr-[id number]-Owaqcyyqlqk Pept 7648 H Total Protein 7.1 Albumin 4.5 Globulin 2.6 Albumin/Globulin Ratio 1.7 02/14/19 02/14/19 02/14/19 07:50 07:50 07:50 WBC RBC Hgb Hct MCV MCH MCHC RDW Std Deviation Plt Count MPV Immature Gran % (Auto) Neut % (Auto) Lymph % (Auto) Coffey % (Auto) Eos % (Auto) Baso % (Auto) Immature Gran # (Auto) Neut # (Auto) Lymph # (Auto) Coffey # (Auto) Eos # (Auto) Baso # (Auto) PT 15.5 INR 1.14 PTT (Actin FS) 44.1 H D-Dimer, Quantitative 1.05 H Sodium Potassium Chloride Carbon Dioxide Anion Gap BUN Creatinine Estimated GFR/1.73 m2 BUN/Creatinine Ratio Glucose Calculated Osmolality Calcium Total Bilirubin AST ALT Alkaline Phosphatase Troponin T 0.051 Isk-P-Udfjisaofst Pept Total Protein Albumin Globulin Albumin/Globulin Ratio Orders Category Date Time Status Admit - [facility] Routine AdmDCTranf 02/14/19 11:53 Active Apply Mechanical Device [QM] ORDERED Care 02/14/19 11:53 Active FSBS/Accucheck Result AC + HS Care 02/14/19 11:53 Active Notify MD if DIRECTED Care 02/14/19 11:53 Active Nursing- MD Consult Request ROUTINE Care 02/14/19 11:53 Active Saline Loc DIRECTED Care 02/14/19 11:53 Active Vital Signs Order Q 4-HR ASSESS Care 02/14/19 11:53 Active Z-Document. for Tele Applied ORDERED Care 02/14/19 11:53 Active MD [Physician/Provider Consults] Routine Cons 02/14/19 11:53 Ordered Physician/Provider Consults Routine Cons 02/14/19 11:53 Ordered Heart Healthy Diet Diet 02/14/19 11:54 Active NPO Diet 02/14/19 11:54 Active LUNG SCAN / VQ [NM] Stat Exams 02/14/19 09:20 Ordered cxr [CHEST-1 VIEW] [RAD] Stat Exams 02/14/19 07:48 Completed CBC WITH ELECTRONIC DIFF [HEME] Routine Lab 02/15/19 06:00 Ordered CBC WITH ELECTRONIC DIFF [HEME] Stat Lab 02/14/19 07:50 Completed CK PROFILE [SP CHEM] Q8H Lab 02/14/19 11:53 Ordered CK PROFILE [SP CHEM] Q8H Lab 02/14/19 19:53 Ordered CK PROFILE [SP CHEM] Q8H Lab 02/15/19 03:53 Ordered CK TOTAL [CHEM] Q8H Lab 02/15/19 03:53 Ordered COMPREHENSIVE METABOLIC PANEL [CHEM] Routine Lab 02/15/19 06:00 Ordered COMPREHENSIVE METABOLIC PANEL [CHEM] Stat Lab 02/14/19 07:50 Completed D-DIMER [COAG] Stat Lab 02/14/19 07:50 Completed LIPID PROFILE W/CALC LDL [LIPIDS] Routine Lab 02/15/19 06:00 Ordered MAGNESIUM [CHEM] Routine Lab 02/15/19 06:00 Ordered PRO B-NATRIURETIC PEPTIDE Stat Lab 02/14/19 07:50 Completed PT [PROTIME WITH INR] [COAG] Stat Lab 02/14/19 07:50 Completed PTT [COAG] Stat Lab 02/14/19 07:50 Completed TROPONIN T Q8H Lab 02/14/19 11:53 Ordered TROPONIN T Q8H Lab 02/14/19 19:53 Ordered TROPONIN T Q8H Lab 02/15/19 03:53 Ordered TROPONIN T Stat Lab 02/14/19 07:50 Completed ATORVAstatin [Lipitor] Med 02/15/19 09:00 Active 40 mg PO DAILY Acetaminophen [Tylenol] Med 02/14/19 11:53 Active 650 mg PO Q6H PRN PRN Amiodarone [Cordarone] Med 02/15/19 09:00 Active 200 mg PO DAILY Amlodipine [Norvasc] Med 02/15/19 09:00 Active 10 mg PO DAILY Apixaban [Eliquis] Med 02/14/19 21:00 Active 2.5 mg PO BID Aspirin Med 02/14/19 07:54 Discontinued 325 mg PO NOW ONE Aspirin Med 02/15/19 09:00 Active 81 mg PO DAILY Carvedilol [Coreg] Med 02/14/19 21:00 Active 25 mg PO BID Hydrocodone/APAP 7.5 mg/325 mg [Nyssa-7.5] Med 02/15/19 09:00 Active 1 each PO DAILY Hydromorphone [Dilaudid] Med 02/14/19 08:10 Discontinued 0.5 mg IV NOW ONE Insulin Lispro [Humalog] Med 02/14/19 11:53 Active See Protocol SUBQ 0700,1100,1600,2100 Morphine Med 02/14/19 11:53 Active 2 mg IV Q4H PRN PRN Nitroglycerin Sl [Nitroglycerin] Med 02/14/19 08:12 Discontinued 0.4 mg SL NOW ONE Nitroglycerin Sl [Nitroglycerin] Med 02/14/19 11:53 Active 0.4 mg SL Q5M PRN PRN Omeprazole [Prilosec] Med 02/15/19 07:00 Active 20 mg PO DAILY@0700 Ondansetron [Zofran] Med 02/14/19 08:10 Discontinued 4 mg IV NOW ONE Ondansetron [Zofran] Med 02/14/19 11:53 Active 4 mg IV Q4H PRN PRN Sertraline [Zoloft] Med 02/15/19 09:00 Active 100 mg PO DAILY Oxygen Device Routine Oth 02/14/19 11:53 Active Telemetry [OM.EQ] Routine Oth 02/14/19 11:53 Active EKG [EKG] Routine Ther 02/15/19 06:00 Ordered EKG [EKG] Stat Ther 02/14/19 07:48 Draft Hemodialysis Access U/S L Arm Routine Ther 02/14/19 11:53 Ordered Transfer/Admit Order [TRANSFER] Routine Transfer 02/14/19 10:30 Completed At recheck pt noted that she was feeling much better and denied CP or SOB after meds in the eR. Result Diagrams: 02/14/19 07:50 02/14/19 07:50 - EKG 1 Time of EKG reading by physician:: 07:35 EKG Read and Signed by:: Lars Alvarez EKG Interpretation (*Must complete 3 of following elements*): Abnormal Rate: 73 Rhythm: atrial fibrillation [place]: normal QRS: other (low voltage) Comments: cannot rule out anteroseptal infarct, age undetermined - CONSULTS/PCP/HOSPITALIST Notification #1 *Consult/PCP/Hospitalist*: Sindy bernstein hospitalist Time Discussed: 09:20 Consult Disposition: Will see in ED, Admit Departure - Departure Date of Disposition Decision: 02/14/19 Time of Disposition Decision: 09:28 DIAGNOSIS: Chest pain, Atrial fibrillation, End stage renal disease, CHF (congestive heart failure) Disposition: ADMITTED INPATIENT 09 Certified Medical Emergency: Emergent Condition: Fair - Critical Care Note This patient required my direct & personal management of CC.: No Attestation - Physician/ LYNN Attestation Patient care was provided by Advanced Practice Provider:: No The physician spent face to face time with patient:: Yes Advanced Practice Provider documentation review:: Supervising physician onsite and consulted in the evaluation and care of this patient. The physician did have a face to face encounter with the patient.
[2019-02-14] MEDS ORDERED: DILAUDID IV ONE (08:10)
[2019-02-14] MEDS ORDERED: ZOFRAN IV ONE (08:10)
[2019-02-14] MEDS ORDERED: NITROGLYCERIN SL ONE (08:12)
[2019-02-14 08:18] LABS: HEMOGLOBIN 11.5 g/dL (12.0-16.0); RBC 3.52 XMIL (4.2-5.4); WBC 5.97 X1000 (4.8-10.8)
[2019-02-14 08:19] LABS: BASO# 0.02 X1000 (0.0-0.2); BASO% 0.3 % (0.0-0.8); EOS# 0.06 X1000 (0.0-0.7); HEMATOCRIT 33.9 % (37.0-47.0); IMM GRAN# 0.02 X1000 (0.0-0.04); IMM GRAN% 0.3 % (0.0-0.5); LYMPH# 1.27 X1000 (1.2-3.4); LYMPH% 21.3 % (20.5-51.1); MCH 32.7 PG (27-31); MCHC 33.9 g/dL (33-37); MCV 96.3 FL (81-99); MONO# 0.57 X1000 (0.11-0.59); MONO% 9.5 % (1.7-9.3); MPV 10.3 FL (7.4-10.4); NEUT# 4.03 X1000 (1.4-6.5); NEUT% 67.6 % (42.2-75.2); PLT 191 X1000 (130-400); RDW 14.9 % (11.5-14.5)
[2019-02-14 08:32] LABS: PROTIME 15.5 Seconds (11.0-16.0)
[2019-02-14 08:33] LABS: INR 1.14
[2019-02-14 08:34] LABS: PTT 44.1 Seconds (22.3-41.8)
[2019-02-14 08:37] LABS: ALB/GLOB RATIO 1.7; ALBUMIN 4.5 g/dL (3.5-5.0); CALCIUM 9.9 mg/dL (8.8-10.2); CREATININE 2.3 mg/dL (0.5-0.9); POTASSIUM 4.3 mmol/L (3.5-5.1); TOTAL BILIRUBIN 0.53 mg/dL (0.20-1.00); TOTAL PROTEIN 7.1 g/dL (6.3-8.3)
--- NOTE | 2019-02-14 08:50 | EKG Report ---
Test Performed on : 02/14/2019 07:35:08 AM Test Reason : chest pain Blood Pressure : / mmHG Vent. Rate : 073 BPM Atrial Rate : 052 BPM P-R Int : 000 ms QRS Dur : 076 ms QT Int : 436 ms P-R-T Axes : 000 039 075 degrees QTc Int : 480 ms Atrial fibrillation. Low voltage QRS Cannot rule out Anteroseptal infarct , age undetermined Abnormal ECG No previous ECGs available Unconfirmed Result
[2019-02-14] MEDS ORDERED: TYLENOL PO PRN (11:53)
[2019-02-14] MEDS ORDERED: ZOFRAN IV PRN (11:53)
[2019-02-14] MEDS ORDERED: NITROGLYCERIN SL PRN (11:53)
--- NOTE | 2019-02-14 12:04 | HISTORY AND PHYSICAL ---
ORACLE DRM CONSULTANT: Dr. Putnam in [place]. FLANGING MACHINE OPERATOR: Dr. Caceres. PRIMARY CARE PROVIDER: Dr. Matthew Henning NEUROSURGEON: Dr. Reynoso CHIEF COMPLAINT: Sudden onset of left-sided chest pain that radiated to the back. HISTORY OF PRESENT ILLNESS: Ms. Rodriguez is a 78-year-old female who carries a past medical history of end-stage renal disease on hemodialysis Wednesday, Wednesday, Wednesday with Dr. Caceres, diabetes mellitus, atrial fibrillation, situational depression and anxiety. Previous myocardial infarction for which she received angioplasty back in October. The patient reported this morning around 7:15 she was sitting on the couch waiting to undergo her vascular study for her AV fistula when she started having a sudden chest pain that was under her left breast that radiated to her back. The pain was initially intense, then it would ease, and then wax and wane. It has only been relieved after receiving nitroglycerin and Dilaudid. She states that this pain was similar to her previous CT. However, she had none of the associated symptoms such as the nausea, dry heaves, or shortness of breath. Workup in the ED showed a chest x-ray with cardiomegaly. An EKG that shows atrial fibrillation, rate controlled at 73 beats per minute, cannot rule out an anterior septal infarct. Laboratory Data did show an elevated D-dimer of 1.05. Mild hyponatremia at 131, BUN of 28, creatinine of 2.3, and a blood glucose of 228, slightly elevated proBNP at 7648, and an alkaline phosphatase of 131. She was previously admitted for chest pain and dyspnea earlier this month. She underwent a perfusion scan at that time that showed that there was no inducible ischemia, but there was an abnormal resting electrocardiogram. There was evidence of anterior lateral scar that was consistent with her history of CT in the territory of the diagonal branch of the LAD. She does report watching her fluid intake, however she has not been watching her sodium intake. We will see if we can set her up for her vascular studies while she is an inpatient. We will admit her to the medical telemetry floor, and consult Cardiology and Nephrology to follow along in her care. REVIEW OF SYSTEMS: A 12 point review of systems completely negative except for those mentioned in HPI. PAST MEDICAL HISTORY: 1. Recent CT with angioplasty. 2. End-stage renal disease, Wednesday, Wednesday, Wednesday. 3. Hypertension. 4. Diabetes mellitus. 5. Atrial fibrillation. 6. Situational depression and anxiety. 7. Multiple fractures to her vertebrae. She is currently awaiting clearance for surgery with Dr. Reynoso 8. Hysterectomy. 9. Appendectomy. 10. Left eye surgery. 11. Right upper chest wall tunneled dialysis catheter. ALLERGIES: No known drug allergies. HOME MEDICATIONS: 1. Amiodarone 200 mg p.o. daily. 2. Norvasc 10 mg p.o. daily. 3. Eliquis 2.5 mg p.o. b.i.d. 4. Lipitor 40 mg p.o. daily. 5. Coreg 25 mg p.o. b.i.d. 6. Roxton 7.5/325 1 tab p.o. daily. 7. NovoLog FlexPen 5 units subcutaneously b.i.d. 8. Levemir Flexitouch 25 units subcutaneous at bedtime. 9. Vitamin B complex 1 tab p.o. daily. 10. Zoloft 100 mg p.o. daily. PHYSICAL EXAMINATION: VITAL SIGNS: Temperature is 98 degrees, heart rate 83, respirations 20, blood pressure 158/81, and O2 is 100% on room air. GENERAL: Ms. Rodriguez is a pleasant 78-year-old female who is lying on the stretcher in no acute distress. HEENT: Atraumatic, normocephalic. PERRL. NECK: Supple. Trachea midline. CARDIOVASCULAR: S1, S2 appreciated. Irregularly irregular rhythm. No murmurs, gallops, or rubs. RESPIRATORY: Lungs sound clear bilaterally. GASTROINTESTINAL: Soft, nontender, nondistended. Positive bowel sounds 4 quadrants. EXTREMITIES: Negative for edema. NEUROLOGIC: No focal deficits noted. DIAGNOSTIC DATA: Chest x-ray cardiomegaly. EKG, atrial fibrillation rate controlled. LABORATORY DATA: White count 5, hemoglobin and hematocrit 11 and 33, platelet counts 191. D- dimer 1.05. Sodium 131, potassium 4.3, BUN 28, creatinine 2.3, blood glucose of 228, alkaline phosphatase 131. Troponin is 0.051. ProBNP is 7648. ASSESSMENT AND PLAN: 1. Chest pain rule out the patient with known coronary artery disease status post CT with angioplasty back in October. She does have a slightly elevated troponin. However, she does have chronic kidney disease. We will continue to trend her troponin's. The patient's chest pain was completely relieved with Dilaudid and nitroglycerin. She states her pain was similar, but no similar associated symptoms. We will continue her on p.o. morphine, her Eliquis, and low-dose aspirin. Consult Cardiology. She did have a recent stress test earlier this month that did show evidence of a scar, but no reproducible ischemia. We will await cardiology's recommendations. 2. End-stage renal disease on hemodialysis Wednesday, Wednesday, Wednesday. We will ask Dr. Caceres for medical assistance with her care. She does have a slightly elevated proBNP. 3. Elevated D-dimer, possibly secondary to her chronic kidney disease. However, with patient's onset of shortness of breath. We will rule out a PE with a V/Q scan. 4. Atrial fibrillation, chronic. Aware. We will continue her home medications with amiodarone, Eliquis and low-dose aspirin. 5. Diabetes mellitus type 2. We will do pattern blood sugar and sliding scale insulin. 6. Hypertension. Continue home medications. 7. Situational depression and anxiety. We will continue home medications with Zoloft. 8. Further recommendations to follow physician evaluation, laboratory and diagnostic data. Dictated by BRAD Duran for Rajwinder Casillas MD cc: MD Price Navarro MD Thomas E. Lockard, I performed a face to face encounter the patient. I reviewed all labs and imaging on the patient. I agree with the H&P as dictated. SARA
[2019-02-14] MEDS: HUMALOG SUBQ SCH ×4 (14:24→22:35)
--- NOTE | 2019-02-14 14:36 | CONSULTATION ---
DATE OF CONSULTATION: 02/14/2019 IMPRESSION: 1. Atypical chest pain. 2. Atherosclerotic coronary disease. Patient presented with acute lateral myocardial infarction in early October of this year and had emergent balloon-only angioplasty of distal diagonal branch which was occluded. There was some suspicion that this might have been embolic. Chest symptoms with her myocardial infarction characterized as being different than what she experienced this morning. 3. End-stage renal disease requiring chronic hemodialysis. 4. Diabetes mellitus. 5. Paroxysmal atrial fibrillation suppressed with amiodarone. Patient continues on low-dose Eliquis. 6. Hypertension. 7. Depression/anxiety. RECOMMENDATIONS: 1. Telemetry observation. 2. Follow up cardiac enzymes. 3. Given atypical nature of patient's chest symptoms, negative stress myocardial perfusion study a few weeks ago which demonstrated no evidence of inducible myocardial ischemia and a small scar in distribution of distal diagonal branch, and limited ischemic burden anticipated based upon coronary angiography result from October of this year. It would be reasonable for her to be discharged if there is no evidence of myocardial insult on cardiac enzymes. HISTORY: This 78-year-old white female with past history of coronary disease as outlined above, acute lateral myocardial infarction in October of this year followed by balloon-only angioplasty of distal occluded diagonal branch with minimal atherosclerosis in other vessels, end-stage renal disease requiring hemodialysis, hypertension, paroxysmal atrial fibrillation, and diabetes mellitus was admitted to the emergency room this morning with chest pain. Cardiology consulted to assist with evaluation. She developed renal failure sufficient to require dialysis this year. She has a fistula in her left arm. She was coming in this morning to have an ultrasound/vascular study of this and was getting ready to come in. Around 0715 hours, she was sitting on the couch and developed sharp left anterior chest discomfort which was worse with deep breaths. Discomfort is not positional. She relates that discomfort is not like what she experienced with previous myocardial infarction. She came to the emergency room with ongoing discomfort and received nitroglycerin with no relief. She subsequent received parental narcotic analgesics after which her chest discomfort resolved. She cannot recall having any chest discomfort of this nature in the past. She suffered acute lateral myocardial infarction on 10/29/2018. She relates that she was putting clothes in the washer and dropped a shirt. She bent over to pick it up off the floor, and when she came up she had sudden onset of chest pain more consistent with acute angina and accompanied by diaphoresis and shortness of breath. She was taken by ambulance to [facility] Emergency Room. ECG there demonstrated acute lateral myocardial infarction with significant ST-elevation leads, one in aVL. She was transferred emergently to [facility]. Coronary angiography indicated minimal irregularities and left main coronary artery, mild coronary atherosclerosis in left anterior descending coronary, left circumflex coronary is small and free of disease, and right coronary large dominant vessel with minimal irregularities. There was occlusion in the distal diagonal branch. She subsequently had balloon-only angioplasty of the distal diagonal branch. Since then, she was hospitalized a few weeks ago with shortness of breath. She had repeat evaluation with Lexiscan myocardial perfusion study which was negative for evidence of inducible myocardial ischemia, but did show a small area of myocardial scar in the distribution of the distal diagonal branch. She also had echocardiography which indicated left ventricular ejection fraction of 50%. PAST MEDICAL HISTORY: 1. Coronary artery disease as outlined above. 2. End-stage renal disease requiring hemodialysis. 3. Hypertension. 4. Paroxysmal atrial fibrillation. 5. Diabetes mellitus. 6. Hypertension. 7. Depression/anxiety. PAST SURGICAL HISTORY: Multiple vertebral fractures, hysterectomy, appendectomy, unspecified left eye surgery, and right upper chest tunnel dialysis catheter. She is also status post creation of arteriovenous fistula in left forearm. ALLERGIES: She has no known drug allergies. HOME MEDICATIONS PRIOR TO ADMISSION: As listed. SOCIAL HISTORY: She is . She does not smoke. FAMILY HISTORY: Negative for premature coronary disease. REVIEW OF SYSTEMS: Pulmonary: Negative. Gastrointestinal: Negative, beyond history of present illness. Constitutional: Negative, beyond history of present illness. Remainder of review of systems negative/noncontributory beyond history of present illness with 14 total systems reviewed. PHYSICAL EXAMINATION: General: This is a pleasant, elderly white female in no distress. Vital signs: Blood pressure 113/91, heart rate 74, oxygen saturation 100% on nasal cannula oxygen at 2 liters/minute. HEENT: Extraocular movements appear intact. Mucous membranes are moist. Neck: Supple. No jugular venous distention. No carotid bruits. Chest: Clear to auscultation bilaterally. Cardiac Exam: Reveals a regular rate and rhythm without appreciable murmur or gallop. Abdomen: Soft. Bowel sounds are normal. Extremities: Without edema. Neurologic: Exam reveals her to be alert and fully oriented. She moves all 4 extremities equally well. Speech is fluent. PERTINENT DATA: Twelve lead EKG demonstrates baseline artifact, probable atrial fibrillation and low voltage QRS. Delayed precordial R-wave progression demonstrated, cannot exclude previous anteroseptal infarct of undetermined age. LABORATORY DATA: Includes a white blood cell count of 5.97, hematocrit 33.9, hemoglobin 11.5, platelet count 191. Sodium 131, potassium 4.3, chloride 93, carbon dioxide 22, BUN 28, creatinine 2.3, glucose 228. Troponin-T 0.051. cc: Benito Jane MD
--- NOTE | 2019-02-14 14:40 | NEPHROLOGY CONSULTATION ---
DATE: 02/14/2019 REASON FOR ADMISSION: Chest pain with non-radiation. REASON FOR CONSULT: ESRD, with medical assistance. CONSULTING PHYSICIAN: Dr. Casillas. HISTORY OF PRESENT ILLNESS: Ms. Rodriguez is an 78-year-old white female who is known to our outpatient services for hemodialysis on Wednesday, Wednesday, Wednesday at the [facility]. The patient stated that she had an appointment today with Dr. Mcgrath to evaluate a vein mapping for possible AV fistula placement. She stated that she started doing well, but prior to leaving she developed left-sided chest pain under her breast. She states that it did radiate. She did not get nauseated. She did not have any diaphoresis. The pain has remained, though the radiation has eased off. She did receive nitroglycerin and Dilaudid. She states that the pain was similar to her previous VT several years ago. She denies any increased work of breathing. Chest x-ray in the emergency room showed cardiomegaly. Her EKG did show that she is in atrial fibrillation, though rate controlled at the heart rate of 73. It also showed possible anterior septal infarct which cannot be ruled out with Cardiology consulted. The patient had an elevated D-dimer of 1.05. She is mildly hyponatremic more than likely secondary to her ESRD with stable BUN and creatinine. The patient stated that she went to her routine dialysis treatment yesterday, stayed for her full entire treatment, did not have any extra fluid on board outside of her average of about 1 to 2 L. She states that she does report watching her fluid intake, but not watching her sodium intake. The patient was admitted to the medical floor with telemetry with Cardiology to evaluate. She currently has no complaints at this time. PAST MEDICAL HISTORY: End-stage renal disease with hemodialysis on Wednesday, Wednesday, Wednesday at the [facility], hypertension, diabetes mellitus type 2, atrial fibrillation which is chronic, situational depression and anxiety, hysterectomy, appendectomy, left eye surgery, right upper chest wall tunneled dialysis catheter, multiple fractures to her vertebrae, anemia of chronic disease, osteodystrophy of chronic disease. SOCIAL HISTORY: She is . She has her spouse at her bedside, along with her son. She denies tobacco, alcohol or illicit drug use. ALLERGIES: Listed as no known drug allergies. MEDICATIONS: Levemir Flex Touch, NovoLog, amiodarone, hydrochloride, amlodipine, carvedilol, sertraline, vitamin B complex, Lipitor, Eliquis, hydrocodone. She also receives Rocaltrol, Aranesp and IV iron as indicated at the outpatient clinic. REVIEW OF SYSTEMS: Times 10 with pertinent positives listed above in the HPI. VITAL SIGNS: Her most recent vital signs: Temperature 97.1, blood pressure 113/91, heart rate 74, respirations 20. She currently is on 2 L nasal cannula. Last recorded saturation 100%. She has had 0 recorded in or out. LABS: Most recently completed shows sodium of 131, potassium 4.3, chloride 93, CO2 22, BUN 28, creatinine 2.3, glucose 228. She has an anion gap of 16. Her calcium is 9.9. Her albumin is 4.5. White count 5.97, hemoglobin 11.5, hematocrit 33.9, with a platelet count of 191,000. Her pro time is 15.5, INR 1.14, PTT 44.1, with a D-dimer of 1.05. The patient had a chest x-ray upon admission indicating cardiomegaly. No pulmonary edema, no infiltrates. EKG again showed atrial fibrillation, cannot rule out anteroseptal infarct. Cardiology was consulted. PHYSICAL EXAMINATION: General: This is an 78-year-old white female resting quietly in bed. She appears chronically ill, though no acute distress. Skin: Warm and dry. HEENT: Normocephalic, atraumatic. Conjunctiva is pale pink. She has NEAL. Mucous membranes are dry. Neck: Supple. Trachea midline. No evidence of JVD in the upright position. Cardiovascular: She has a irregular rate and rhythm. Rate controlled in the 70s to 90s. No murmur or gallop is appreciated. Lungs: Clear to auscultation anteriorly. Equal excursion. She remains on O2. Abdomen: Soft, nontender. Positive bowel sounds. Genitourinary: Not inspected. Minimal void with dialysis assist. Extremities: Have no edema. No clubbing or cyanosis. Integumentary: Patient has markings to her left upper brachial area for AV fistula mapping. She also has a dialysis tunneled catheter to the right chest wall. This is dry and intact. No redness noted. Neurologic: Alert and oriented x 3. ASSESSMENT AND PLAN: 1. Chronic kidney disease stage 5 D. Patient had a routine dialysis treatment yesterday. There are no indications for further intervention at this time. We will wait for dialysis per her routine in the morning. 2. Electrolytes and acid-base balance. She has hyponatremia which is secondary to #1. Potassium remains stable. Acidosis is acceptable. 3. Anemia. This is close to target with a hemoglobin of 11.5. Patient remains on anticoagulation of Eliquis and low-dose aspirin. 4. Atrial fibrillation, which is chronic. She remains on amiodarone, Eliquis, and low-dose aspirin as mentioned. Cardiology is now following complaints of chest pain. I would like to thank you for allowing us to follow with this patient. Dictated by BRAD Lira for Rex Caceres MD Face to face encounter, data reviewed, discussed with Nicole Zaragoza on 02/14/19. I agree with the above assessment and plan of care. cc: BRAD Lira MD [facility]
--- NOTE | 2019-02-14 15:14 | Diag Imaging Result Doc PS360 ---
EXAM: LUNG SCAN / VQ INDICATION: r/o PE TECHNIQUE: 34.6 mCi of aerosolized technetium 99 DTPA was administered for the ventilation portion of the scan. 5.8 mCi of IV technetium 99 MAA was administered for the perfusion portion of the scan. COMPARISON: None. FINDINGS: No matched or unmatched perfusion defects are identified. There is some condensation of radiotracer in the mainstem bronchi on the ventilation portion of the scan. The ventilation portion of the scan is grossly unremarkable, otherwise. IMPRESSION: Negative VQ scan. Electronically signed by Seferino Johnson 02/14/2019 3:11 PM
[2019-02-14 19:25] LABS: URINE SOURCE CLEAN CATCH
[2019-02-14 19:30] LABS: BILIRUBIN URINE NEGATIVE (NEGATIVE); BLOOD URINE NEGATIVE (NEGATIVE); COLOR YELLOW; GLUCOSE URINE NEGATIVE (NEGATIVE); KETONE URINE NEGATIVE (NEGATIVE); LEUKOCYTES URINE SMALL (NEGATIVE); NITRITE URINE NEGATIVE (NEGATIVE); PH URINE 5.5; PROTEIN URINE 300 mg/dL (NEGATIVE); SP GRAVITY URINE 1.026; TURBIDITY URINE CLEAR (CLEAR); UROBILINOGEN URINE NORMAL (NORMAL)
[2019-02-14 19:31] LABS: UR EPITHELIAL CELLS <10 /HPF (<10); URINE BACTERIA NEGATIVE /HPF; URINE RBC <10 /HPF (<10)
[2019-02-14] MEDS ORDERED: LEVEMIR SUBQ SCH (21:00)
[2019-02-14] MEDS: COREG PO SCH (22:35)
[2019-02-14] MEDS: ELIQUIS PO SCH (22:35)
[2019-02-14] MEDS: MORPHINE IV PRN (22:35)
[2019-02-15] MEDS: MORPHINE IV PRN (05:00)
[2019-02-15] MEDS ORDERED: NS 2,000 ML MISC PRN (06:14)
[2019-02-15] MEDS ORDERED: HEPARIN IV PRN (06:14)
[2019-02-15] MEDS ORDERED: TIGHT: 0.2 ML/HR FOR DIALYSIS MISC PRN (06:14)
[2019-02-15] MEDS ORDERED: PRILOSEC PO SCH (07:00)
--- NOTE | 2019-02-15 07:14 | EKG Report ---
Test Performed on : 02/15/2019 06:29:08 AM Test Reason : cp Blood Pressure : / mmHG Vent. Rate : 073 BPM Atrial Rate : 063 BPM P-R Int : 000 ms QRS Dur : 084 ms QT Int : 442 ms P-R-T Axes : 000 031 052 degrees QTc Int : 486 ms Atrial fibrillation. Low voltage QRS Possible Anterolateral infarct (cited on or before 17-MAY-2018) Abnormal ECG When compared with ECG of 14-FEB-2019 07:35, (Unconfirmed) Nonspecific T wave abnormality now evident in Lateral leads Confirmed by Sanjuanita BOSS, Don Singh ([id number]) on 02/15/2019 3:52:52 PM
[2019-02-15] MEDS: HUMALOG SUBQ SCH ×3 (08:19→12:53)
--- NOTE | 2019-02-15 08:58 | NEPHROLOGY PROGRESS NOTE ---
DATE: 02/15/2019 SUBJECTIVE: Ms. Rodriguez is resting quietly in bed. Her head of the bed is elevated. She denies any complaints of chest pain or increased work of breathing today. OBJECTIVE: Vital Signs: Patient's most recent vital signs, temperature 98.1 degrees, blood pressure 159/61, heart rate is 84 respirations are 13. She is currently on room air. Last recorded saturation 100%. She has had 1283 in. She has had 100 out to void. Laboratory Data: These are currently pending this a.m. Potassium of 4.3. Previous hemoglobin 11.5. General: This is an 78-year-old white female resting quietly in bed. Head of the bed is slightly elevated. No acute distress. Skin: Warm and dry. HEENT: Normocephalic, atraumatic. Conjunctiva is pale. She has NEAL. Mucous membranes are dry. Neck: Supple. Trachea midline. No evidence of JVD. Cardiovascular: She has irregularly irregular rate and rhythm. She has an S4. Lungs: Clear to auscultation bilaterally. Equal excursion on room air. Abdomen: Soft, nontender. Positive bowel sounds. Genitourinary: Not inspected. Minimal void with dialysis assist. Extremities: Have no edema, no clubbing or cyanosis. She does have markings from vein mapping yesterday per Dr. Mcgrath on her left upper arm. Lower extremities have no edema. No clubbing or cyanosis. Integumentary: Tunneled catheter to the right chest wall. ASSESSMENT AND PLAN: 1. Chronic kidney disease stage 5D. The patient is due for routine dialysis treatment today. We will place her on a 2K bath. She is to dialyze for 3.5 hours. We will attempt to pull her to her outpatient dry weight. 2. Electrolytes and acid-base balance. Patient has been hyponatremic secondary to #1. Potassium stable. Acidosis is acceptable. 3. Anemia. This is low but stable. 4. Atrial fibrillation. The patient remains on anticoagulation with low-dose aspirin, followed by Cardiology. I would like to thank you for allowing us to follow with this patient. Dictated by BRAD Lira for Rex Caceres MD Face to face encounter, data reviewed, discussed with Nicole Zaragoza on 02/15/19. I agree with the above assessment and plan of care. cc: BRAD Lira MD [facility]TDD
[2019-02-15] MEDS ORDERED: ASPIRIN PO SCH (09:00)
[2019-02-15] MEDS ORDERED: CORDARONE PO SCH (09:00)
[2019-02-15] MEDS ORDERED: NORVASC PO SCH (09:00)
[2019-02-15] MEDS ORDERED: LIPITOR PO SCH (09:00)
[2019-02-15] MEDS ORDERED: NORCO-7.5 PO SCH (09:00)
[2019-02-15] MEDS ORDERED: ZOLOFT PO SCH (09:00)
[2019-02-15 10:25] LABS: BASO# 0.01 X1000 (0.0-0.2); BASO% 0.2 % (0.0-0.8); EOS# 0.07 X1000 (0.0-0.7); EOS% 1.2 % (0.0-10.0); HEMATOCRIT 29.6 % (37.0-47.0); HEMOGLOBIN 9.9 g/dL (12.0-16.0); LYMPH# 1.72 X1000 (1.2-3.4); LYMPH% 29.8 % (20.5-51.1); MCH 32.9 PG (27-31); MCHC 33.4 g/dL (33-37); MCV 98.3 FL (81-99); MONO# 0.49 X1000 (0.11-0.59); MONO% 8.5 % (1.7-9.3); MPV 10.5 FL (7.4-10.4); NEUT# 3.48 X1000 (1.4-6.5); NEUT% 60.3 % (42.2-75.2); PLT 169 X1000 (130-400); RBC 3.01 XMIL (4.2-5.4); RDW 15.3 % (11.5-14.5); WBC 5.77 X1000 (4.8-10.8)
[2019-02-15 10:55] LABS: AGAP 13; ALB/GLOB RATIO 1.6; ALBUMIN 3.6 g/dL (3.5-5.0); ALKALINE PHOSPHATASE 101 U/L (32-104); BUN 42 mg/dL (8-22); CALCIUM 8.9 mg/dL (8.8-10.2); CHLORIDE 94 mmol/L (98-107); CHOLESTEROL 87 mg/dL (0-200); COSMO 270; ESTIMATED GFR 15; GLUCOSE 185 mg/dL (70-104); GOT 18 U/L (10-30); GPT 10 U/L (10-36); HDL 35 mg/dL (45-65); LDL 29 mg/dL; PHOSPHORUS 5.2 mg/dL (2.7-4.5); POTASSIUM 4.3 mmol/L (3.5-5.1); SODIUM 127 mmol/L (136-145); TCO2 20 mmol/L (25-35); TOTAL BILIRUBIN 0.27 mg/dL (0.20-1.00); TOTAL PROTEIN 5.9 g/dL (6.3-8.3); TRIGLYCERIDES 115 mg/dL (35-135); VLDL 23 mg/dL
[2019-02-15 12:09] VITALS: BP 132/68
[2019-02-15] MEDS: ELIQUIS PO SCH (12:50)
[2019-02-15] MEDS: COREG PO SCH (12:50)
--- NOTE | 2019-02-17 21:54 | Extremity Venous Study ---
PROCEDURE NAME: Hemodialysis Access U/S L Arm - 02/14/2019 REQUESTING PHYSICIAN: Stiven Mcgrath MD. READING PHYSICIAN: Sanchez Rousseau MD. ETCHER APPRENTICE: Froylan. INDICATION: Dysfunction of arteriovenous fistula and need to evaluate for branches. FINDINGS: There was a large branch seen at the distal upper arm. This is coming off a brachial- basilic arteriovenous fistula. The fistula was measured from the elbow to the upper arm. Just distal to the anastomosis, the velocity is 39 cm/sec. At the anastomosis, the velocity is 873 cm/sec. In the upper arm, the fistula has a velocity of 305 cm/sec. In the mid arm, its velocity is 159, and proximally it has a velocity of 104. INTERPRETATION: There is a large branch of the left brachiobasilic AV fistula, and there is a stenosis at the anastomosis of this fistula. cc: Sanchez Rousseau MD
--- NOTE | 2019-02-18 13:38 | DISCHARGE SUMMARY ---
ADMISSION DATE: 02/14/2019 DISCHARGE DATE: 02/15/2019 FINAL DISCHARGE DIAGNOSES: 1. Atypical chest pain. 2. End-stage renal disease on hemodialysis. 3. Hypertension. 4. Atrial fibrillation. 5. Depression. 6. Anxiety disorder. 7. Coronary artery disease. CONSULTATIONS: 1. Nephrology consultation with Dr. Caceres. 2. Cardiology consultation with Dr. Jane. HOSPITAL COURSE: Ms. Rodriguez is an 78-year-old female with a history of multiple medical problems, who initially presented to the ER with a chief complaint of chest pain. The patient was admitted to the Hospitalist service and serial cardiac enzymes were obtained that were noted to be unremarkable. Also, the patient was seen by the checker/stocker, who felt that the patient's chest pain was not cardiac in origin. The patient underwent a routine dialysis session while hospitalized. She complained of no further chest pain and was ultimately cleared for discharge home on 02/15/2019. DISCHARGE MEDICATIONS: 1. Aspirin 81 mg p.o. daily. 2. Levemir 25 units subcutaneous at bedtime. 3. NovoLog 5 units subcutaneous twice a day with meals. 4. Amiodarone 200 mg oral daily. 5. Norvasc 10 mg p.o. daily. 6. Coreg 25 mg oral twice a day. 7. Zoloft 100 mg oral daily. 8. Vitamin B complex 1 tab oral daily. 9. Lipitor 40 mg p.o. daily. 10. Eliquis 2.5 mg oral twice a day. 11. Dawson 7.5/325 one tab oral daily. DISCHARGE DIET: Renal diet. ACTIVITY: As tolerated. FOLLOWUP INSTRUCTIONS: The patient has been advised to follow up with her checker/stocker as scheduled. The patient will also need to continue with her routine dialysis sessions as prescribed. cc: Rajwinder Casillas MD
== END 2019-02-15 13:06 | disposition home or self-care (01) | DRG 313 ==
LOC: ED 07:33 → 4N 11:31
PROVIDERS: ATTEND Internal Medicine

== ENCOUNTER 2019-07-26 01:50 | Inpatient (IN) ==
--- NOTE | 2019-07-26 02:12 | PROVIDER DOCUMENTATION ---
This chart was entered by Lady Kendall Scribe, acting as scribe for Surendra Ortiz MD. HPI-Chest Pain - General Stated Complaint: cp Time Seen by Provider: 07/26/19 01:51 Source: patient Allergies/Adverse Reactions: Patient Allergies Allergy/AdvReac Type Severity Reaction Status Date / Time No Known Allergies Allergy Verified 04/13/19 09:47 Home Medications: Home Medication List Medication Instructions Recorded Confirmed Last Taken Type Insulin Aspart [Novolog Flexpen] 5 units SUBQ BID CC 05/17/18 04/20/19 04/19/19 20:00 History 2.5 units ATORVAstatin [Lipitor] 40 mg PO DAILY 12/20/18 04/20/19 04/19/19 20:00 History Amiodarone HCl 200 mg PO DAILY 12/20/18 04/20/19 04/19/19 08:00 History Amlodipine Besylate 10 mg PO DAILY 12/20/18 04/20/19 04/19/19 08:00 History Carvedilol 25 mg PO BID 12/20/18 04/20/19 04/20/19 04:30 History Sertraline HCl 100 mg PO DAILY 12/20/18 04/20/19 04/19/19 08:00 History Vitamin B Complex 1 tab PO DAILY 12/20/18 04/20/19 04/19/19 08:00 History Apixaban [Eliquis] 2.5 mg PO BID 01/23/19 04/20/19 04/19/19 20:00 History Tramadol [Ultram] 50 mg PO Q4H PRN PRN #30 tab 02/28/19 04/20/19 Unknown Rx Hydrocodone/Acetaminophen [Wellington 1 ea PO Q6H PRN PRN #30 tab 04/20/19 Unknown Rx 5-325 Tablet] - History of Present Illness-CP Nature of Presenting Problem: pt is a 78 yr old white female with history of atrial fibrillation and ESRD (receives hemodialysis MWF) presenting by EMS with sudden onset left chest pain, no radiation and sob. pt reports while lying in bed tonight she began having sharp, stabbing pain to left chest, pt reports nausea, shortness of breath and diaphoresis with the pain.324mg baby aspirin given by EMS enroute. upon arrival pt is pain free, during transport Afib noted and a 6sec run of [employer]. Location: reports: substernal (left) Chest Pain Radiation: reports: no radiation Quality of Pain: reports: sharp, stabbing Severity in ED: severe Onset/Duration: abrupt (45min [employer]) Timing: gone now Context/Activities at Onset: reports: rest Modifying Factors: improves with: analgesics (ASA 324mg) Associated Symptoms: reports: diaphoresis, nausea, shortness of breath Nitro Today/Relief: no nitro taken today Aspirin Treatment Today: 81 mg x 4, provided by EMS Similar Symptoms Previously?: No Recently Seen Here or By Another Healthcare Provider: No Review of Systems - Adult - REVIEW OF SYSTEMS - ADULT Constitutional: denies: fever, fatique Eyes: denies: blurred vision, double vision Ears, Nose, Mouth & Throat: reports: no symptoms reported Cardiovascular: reports: chest pain. denies: palpitations, syncope Respiratory: reports: shortness of breath Gastrointestinal: reports: nausea. denies: vomiting Genitourinary: reports: no symptoms reported Musculoskeletal: reports: no symptoms reported Integumentary: reports: no symptoms reported Neurological: reports: no symptoms reported Psychiatric: reports: no symptoms reported Endocrine: reports: no symptoms reported Hematologic/Lymphatic: reports: no symptoms reported Allergic/Immunologic: reports: no symptoms reported All Other Systems: Reviewed and Negative Past History - Adult - PAST MEDICAL HISTORY-ADULT Review of Records: reports: Old Records Reviewed, Nursing Assessment Review, Medications Reviewed, Social history reviewed & non-contributory. Major Childhood Illnesses: reports: denies history Cardiovascular: reports: A-Fib, CHF, HTN Respiratory: reports: denies history Gastrointestinal: reports: denies history Obstetrical/Gynecological: reports: denies history Genitourinary: reports: ESRD Musculoskeletal: reports: denies history Neurological: reports: denies history Psychiatric: reports: denies history Endocrine/Immune: reports: Diabetes Other Conditions: reports: denies history - IMMUNIZATION STATUS Childhood Immunizations: See Nurse Assessment Flu Vaccine: See Nurse Assessment - FAMILY HISTORY Family History: reviewed, not pertinent - SOCIAL HISTORY Living Situation: family Physical Exam-General - PHYSICAL EXAM-ADULT Initial Vital Signs Reviewed: Yes - CONSTITUTIONAL General Appearance: appears well, alert, no apparent distress - EYES Eyes: PERRL/EOMI - HEAD, EARS, NOSE, MOUTH & THROAT HENMT: normocephalic/atraumatic, moist mucous membranes, normal ENT inspection - NECK Neck: non-tender, full range of motion, supple, normal inspection - RESPIRATORY Respiratory: chest non-tender, lungs clear, normal breath sounds - CARDIOVASCULAR Cardiovascular: normal peripheral pulses, no edema, no gallop, no JVD, no murmur , irregularly irregular - GASTROINTESTINAL (ABDOMEN) Abdominal Exam: normal bowel sounds, non tender, soft - LYMPHATIC Lymphatic: no adenopathy - MUSCULOSKELETAL Back Exam: normal inspection Extremity: normal range of motion, non-tender, normal inspection - SKIN Integumentary: normal color, normal turgor, warm/dry - NEUROLOGIC Neurologic: grossly normal, no motor/sensory deficits - PSYCHIATRIC Psych/Mental Status: normal mood/affect - HEART Score HEART Score: History: Moderately Suspicious HEART Score: ECG: Non-Specific Repolarization Disturbance/LBBB/PM HEART Score: Age: > or = 65 Years HEART Score: Risk Factors for Atherosclerotic Disease: > or = 3 Risk Factors or History of Atherosclerotic Disease HEART Score: Troponin: < or = Normal Limit Total HEART Score:: 6 Progress - PLAN OF CARE/RESULTS Progress/Plan/Lab Results: Vital Signs - 8 hr 07/26/19 02:05 Temperature 98.2 F Pulse Rate 82 Respiratory Rate 16 Blood Pressure 149/75 O2 Sat by Pulse Oximetry 100 Laboratory Results - last 24 hr 07/26/19 07/26/19 07/26/19 02:25 02:25 02:25 WBC 6.68 RBC 3.38 L Hgb 10.7 L Hct 33.8 L MCV 100.0 H MCH 31.7 H MCHC 31.7 L RDW Std Deviation 13.4 Plt Count 194 MPV 10.4 Immature Gran % (Auto) 0.0 Neut % (Auto) 67.7 Lymph % (Auto) 22.6 Faulkner % (Auto) 7.9 Eos % (Auto) 1.5 Baso % (Auto) 0.3 Immature Gran # (Auto) 0.00 Neut # (Auto) 4.52 Lymph # (Auto) 1.51 Faulkner # (Auto) 0.53 Eos # (Auto) 0.10 Baso # (Auto) 0.02 PT INR Sodium Potassium Chloride Carbon Dioxide Anion Gap BUN Creatinine Estimated GFR/1.73 m2 BUN/Creatinine Ratio Glucose Calculated Osmolality Calcium Magnesium 2.0 Total Bilirubin AST ALT Alkaline Phosphatase Creatine Kinase Troponin T 0.032 Xmb-P-Njtomddplzs Pept Total Protein Albumin Globulin Albumin/Globulin Ratio 07/26/19 07/26/19 07/26/19 02:25 02:25 02:25 WBC RBC Hgb Hct MCV MCH MCHC RDW Std Deviation Plt Count MPV Immature Gran % (Auto) Neut % (Auto) Lymph % (Auto) Faulkner % (Auto) Eos % (Auto) Baso % (Auto) Immature Gran # (Auto) Neut # (Auto) Lymph # (Auto) Faulkner # (Auto) Eos # (Auto) Baso # (Auto) PT INR Sodium 135 L Potassium 3.8 Chloride 95 L Carbon Dioxide 22 L Anion Gap 18 BUN 42 H Creatinine 2.6 H Estimated GFR/1.73 m2 18 BUN/Creatinine Ratio 16 Glucose 237 H Calculated Osmolality 288 Calcium 9.5 Magnesium Total Bilirubin 0.44 AST 26 ALT 47 H Alkaline Phosphatase 168 H Creatine Kinase 48 Troponin T Tvc-T-Dpxiuvcaklg Pept 79636 H Total Protein 6.2 L Albumin 4.1 Globulin 2.1 Albumin/Globulin Ratio 2.0 07/26/19 02:25 WBC RBC Hgb Hct MCV MCH MCHC RDW Std Deviation Plt Count MPV Immature Gran % (Auto) Neut % (Auto) Lymph % (Auto) Faulkner % (Auto) Eos % (Auto) Baso % (Auto) Immature Gran # (Auto) Neut # (Auto) Lymph # (Auto) Faulkner # (Auto) Eos # (Auto) Baso # (Auto) PT 15.6 INR 1.22 Sodium Potassium Chloride Carbon Dioxide Anion Gap BUN Creatinine Estimated GFR/1.73 m2 BUN/Creatinine Ratio Glucose Calculated Osmolality Calcium Magnesium Total Bilirubin AST ALT Alkaline Phosphatase Creatine Kinase Troponin T Wru-K-Cwhfzvwntiy Pept Total Protein Albumin Globulin Albumin/Globulin Ratio Orders Category Date Time Status Cardiac Monitoring DIRECTED Care 07/26/19 01:49 Active Saline Loc NOW Care 07/26/19 01:52 Active CHEST-PORTABLE [RAD] Stat Exams 07/26/19 03:39 Taken BNP [PRO B-NATRIURETIC PEPTIDE] Stat Lab 07/26/19 02:25 Completed CBC WITH ELECTRONIC DIFF [HEME] Stat Lab 07/26/19 02:25 Completed CK PROFILE [SP CHEM] Stat Lab 07/26/19 02:25 Completed CMP [COMPREHENSIVE METABOLIC PANEL] [CHEM] Stat Lab 07/26/19 02:25 Completed MAGNESIUM [CHEM] Stat Lab 07/26/19 02:25 Completed PT [PROTIME WITH INR] [COAG] Stat Lab 07/26/19 02:25 Completed TROPONIN T Stat Lab 07/26/19 02:25 Completed URINALYSIS W/POSS RFLX CULT [URINALYSIS] Stat Lab 07/26/19 02:06 Uncollected Furosemide [Lasix] Med 07/26/19 04:07 Discontinued 60 mg IV NOW ONE Oxygen Device Stat Oth 07/26/19 01:50 Completed Pulse Oximetry Stat Oth 07/26/19 01:49 Completed Result Diagrams: 07/26/19 02:25 07/26/19 02:25 - EKG 1 Time of EKG reading by physician:: 02:01 EKG Read and Signed by:: Surendra Ortiz Rate: 74 Rhythm: atrial fibrillation ST Wave: non-specific ST changes Comments: no STEMI - XRAY 1 XRAY Study: Chest XRAY Interpretation: CHF - CONSULTS/PCP/HOSPITALIST Notification #1 *Consult/PCP/Hospitalist*: Dr. Spangler Time Discussed: 04:15 Consult Disposition: Admit Departure - Departure Date of Disposition Decision: 07/26/19 Time of Disposition Decision: 04:25 DIAGNOSIS: End stage renal disease, Paroxysmal ventricular tachycardia CHF (congestive heart failure) Qualifiers: Heart failure type: unspecified Heart failure chronicity: acute on chronic Qualified Code(s): I50.9 - Heart failure, unspecified Chest pain Qualifiers: Chest pain type: unspecified Qualified Code(s): R07.9 - Chest pain, unspecified Disposition: ADMITTED INPATIENT 09 Certified Medical Emergency: Emergent Condition: Stable Referrals and Follow-Ups: Matthew Henning DO [Primary Care Provider] - - Critical Care Note This patient required my direct & personal management of CC.: No Attestation - Physician/ LYNN Attestation Patient care was provided by Advanced Practice Provider:: No The physician spent face to face time with patient:: Yes Advanced Practice Provider documentation review:: Supervising physician onsite and consulted in the evaluation and care of this patient. The physician did have a face to face encounter with the patient. This chart was documented by the indicated scribe, (Lady Kendall Scribe) and accurately reflects the services I performed and decisions made by me, Surendra Ortiz MD, as attested by the provider's signature.
[2019-07-26 02:40] LABS: BASO# 0.02 X1000 (0.0-0.2); BASO% 0.3 % (0.0-0.8); EOS% 1.5 % (0.0-10.0); HEMATOCRIT 33.8 % (37.0-47.0); HEMOGLOBIN 10.7 g/dL (12.0-16.0); LYMPH# 1.51 X1000 (1.2-3.4); LYMPH% 22.6 % (20.5-51.1); MCH 31.7 PG (27-31); MCHC 31.7 g/dL (33-37); MONO# 0.53 X1000 (0.11-0.59); MONO% 7.9 % (1.7-9.3); MPV 10.4 FL (7.4-10.4); NEUT# 4.52 X1000 (1.4-6.5); NEUT% 67.7 % (42.2-75.2); PLT 194 X1000 (130-400); RBC 3.38 XMIL (4.2-5.4); RDW 13.4 % (11.5-14.5); WBC 6.68 X1000 (4.8-10.8)
[2019-07-26 02:58] LABS: ALBUMIN 4.1 g/dL (3.5-5.0); CALCIUM 9.5 mg/dL (8.8-10.2); CREATININE 2.6 mg/dL (0.5-0.9); POTASSIUM 3.8 mmol/L (3.5-5.1); TOTAL BILIRUBIN 0.44 mg/dL (0.20-1.00); TOTAL PROTEIN 6.2 g/dL (6.3-8.3)
[2019-07-26 03:02] LABS: INR 1.22; PROTIME 15.6 Seconds (11.0-16.0)
[2019-07-26] MEDS ORDERED: LASIX IV ONE (04:07)
--- NOTE | 2019-07-26 06:13 | Diag Imaging Result Doc PS360 ---
EXAM: CHEST-PORTABLE HISTORY: sob,cp TECHNIQUE: Single view COMPARISON: 02/14/2019 FINDINGS: The lungs are well expanded. The heart is not enlarged. Mild pulmonary edema. No pleural effusions identified. No consolidation. IMPRESSION: Cardiomegaly with mild pulmonary edema Electronically signed by Fermin Burkett 07/26/2019 6:11 AM
[2019-07-26 08:42] LABS: HEMOGLOBIN A1C 6.9 % (4.8-6.0)
[2019-07-26 09:08] LABS: URINE SOURCE CLEAN CATCH
[2019-07-26 09:19] LABS: BILIRUBIN URINE NEGATIVE (NEGATIVE); BLOOD URINE NEGATIVE (NEGATIVE); COLOR YELLOW; GLUCOSE URINE NEGATIVE (NEGATIVE); KETONE URINE NEGATIVE (NEGATIVE); LEUKOCYTES URINE NEGATIVE (NEGATIVE); NITRITE URINE NEGATIVE (NEGATIVE); PH URINE 6.5; PROTEIN URINE 50 mg/dL (NEGATIVE); TURBIDITY URINE CLEAR (CLEAR); UROBILINOGEN URINE NORMAL (NORMAL)
[2019-07-26 09:21] LABS: UR EPITHELIAL CELLS <10 /HPF (<10); URINE BACTERIA NEGATIVE /HPF; URINE RBC <10 /HPF (<10); URINE WBC <10 /HPF (<10)
[2019-07-26] MEDS ORDERED: ZOFRAN IV PRN (09:23)
[2019-07-26] MEDS ORDERED: TYLENOL PO PRN (09:23)
--- NOTE | 2019-07-26 09:41 | EKG Report ---
Test Performed on : 07/26/2019 02:00:29 AM Test Reason : CP Blood Pressure : / mmHG Vent. Rate : 074 BPM Atrial Rate : 037 BPM P-R Int : 000 ms QRS Dur : 078 ms QT Int : 416 ms P-R-T Axes : 000 -24 -23 degrees QTc Int : 461 ms Atrial fibrillation. Anteroseptal infarct (cited on or before 17-MAY-2018) Abnormal ECG When compared with ECG of 15-FEB-2019 06:29, Non-specific change in ST segment in Lateral leads Nonspecific T wave abnormality now evident in Inferior leads Nonspecific T wave abnormality now evident in Anterior leads Unconfirmed Result
[2019-07-26] MEDS ORDERED: NORCO-5 PO PRN (09:43)
--- NOTE | 2019-07-26 09:49 | EKG Report ---
Test Performed on : 07/26/2019 09:21:56 AM Test Reason : CP Blood Pressure : / mmHG Vent. Rate : 059 BPM Atrial Rate : 072 BPM P-R Int : 000 ms QRS Dur : 082 ms QT Int : 450 ms P-R-T Axes : 000 145 -04 degrees QTc Int : 445 ms Suspect arm lead reversal, interpretation assumes no reversal Atrial fibrillation. with slow ventricular response. Septal infarct (cited on or before 17-MAY-2018) Lateral infarct (cited on or before 17-MAY-2018) Abnormal ECG When compared with ECG of 26-JUL-2019 02:00, (Unconfirmed) Nonspecific T wave abnormality, improved in Inferior leads Confirmed by Monica BOSS, Kenneth ([id number]) on 07/27/2019 8:31:07 AM
[2019-07-26] MEDS ORDERED: HEPARIN IV PRN (10:29)
[2019-07-26] MEDS ORDERED: NS 2,000 ML MISC PRN (10:29)
[2019-07-26 11:08] LABS: CALCIUM 9.3 mg/dL (8.8-10.2); CREATININE 2.7 mg/dL (0.5-0.9); MAGNESIUM 1.9 mg/dL (1.5-2.7); POTASSIUM 3.9 mmol/L (3.5-5.1)
[2019-07-26] MEDS: HUMULIN R SUBQ SCH ×3 (11:36→22:06)
--- NOTE | 2019-07-26 12:37 | PROVIDER PROGRESS NOTE ---
Progress Note Chief complaint: I was having chest pain. History of present illness: Mrs. Rodriguez is an 78-year-old white female who is known to our outpatient services with a past medical history of chronic kidney disease 5D with hemodialysis on Wednesday, Wednesday, and Wednesday at the [facility], type two diabetes mellitus, and atrial fibrillation. She was getting ready for bed around 1230 this morning when she began having chest pain 7/10 sharp in nature. She denies the pain radiating anywhere. Admits to concurrent shortness of breath, diaphoresis, and nausea and vomiting. EMS was called and she was presented to the emergency department where she was given nitro sublingual that relieved her chest pain. She admits to having the same chest pain earlier this year that resulted in her having a stress test that she did not follow up with. She does not currently see a rubber process hand. Her EKG showed atrial fibrillation with slow ventricular response, septal and lateral infarct cited previously in April, and new non-specific T-wave abnormality. Past medical history: chronic kidney disease stage five day with hemodialysis on Wednesday, Wednesday, and Wednesday, hypertension, diabetes mellitus type two, atrial fibrillation, situational depression and anxiety. Past surgical history: hysterectomy, appendectomy, left eye surgery, right upper chest wall tunnel dialysis catheter, fistula placement to the left extremity. Social history: she lives at home with her spouse. She denies any tobacco, alcohol, or illicit drug use. Family history: positive for heart disease Allergies: no known. Home medication: Amiodarone, amlodipine, Eliquis, aspirin, Lipitor, carvedilol, [place] 5, NovoLog flex pen, levemir, Zoloft, vitamin B complex. Review of systems: neurological: denies altered mental status, confusion, or dizziness. Eyes: denies blurriness, dryness, or change in visual acuity. ENT: denies tinnitus or change in hearing. Integumentary: denies any erythema, rash, or itching. Respiratory: Admits to shortness of breath. Denies orthopnea or cough. Cardiovascular: denies palpitations. Admits to chest pain. G.I.: Admits to nausea and vomiting, denies abdominal pain. : denies change in flow, color, or amount, odor. Endocrine: Denies excessive thirst and hunger. Musculoskeletal: Denies bilateral lower weakness or extremity pain. Labs: WBC 6.68, hemoglobin 10.7, hematocrit 33.8, platelet count 194, sodium 140, potassium 3.9, chloride 98, carbon dioxide 27, BUN 45, creatinine 2.7, pro BNP 18,000, CK 38, troponin 0.036. Urine protein 50, -4 WBC, RBC, and bacteria. Imaging: chest x-ray impression cardiomegaly with mild pulmonary edema. Physical exam: temperature 97.5, pulse 83, blood pressure 124/49, O2 sat 100% on 2 L nasal cannula. General: elderly white female lying in bed in no acute distress. HEENT: a traumatic, normocephalic. Pupils equal and reactive. Trachea midline. Skin: stitches to right upper chest wall with erythema around edges. Neck: supple, 6 cm JVD Cardiology: regular rate and rhythm. Bradycardic. No murmur or gallop. Respiratory: clear with equal air excursion bilaterally abdomen: soft, nontender, nondistended. Bowel sounds active. : none inspected Extremities: trace edema to bilateral lower extremities. Neurological: alert and oriented to person, place, and time. Assessment and plan: Chronic kidney disease 5D. She will receive her routine hemodialysis treatment today with a 2K, 2.5 Ca bath for 3.5 hours. Blood pressure. In target. Fluid volume. Slightly expanded. She will receive hemodialysis today. Anemia. Low but stable. Does not meet transfusion criteria. Electrolytes and acid base balance. In target. Nutrition. She is NPO right now waiting to be evaluated by cardiology. Ambulation. Ordered to be up,with assistance. Medication review.
--- NOTE | 2019-07-26 14:48 | Diag Imaging Result Doc PS360 ---
EXAM: US RENAL 2 (RETROPER) COMPLETE HISTORY: decreased renal function TECHNIQUE: Renal ultrasound COMPARISON: 12/13/2013 FINDINGS: The right kidney measures 10.2 x 4.1 x 4.1 cm. The left kidney measures 9.9 x 3.8 x 4.8 cm. Mild increased renal echotexture. Normal cortical thickness. There are scattered renal cysts. No stones or hydronephrosis. The urinary bladder is mild to moderately distended. IMPRESSION: Increased renal echotexture consistent with medical renal disease. There are also small scattered renal cysts. Electronically signed by Fermin Burkett 07/26/2019 2:46 PM
--- NOTE | 2019-07-26 14:48 | CARDIOLOGY CONSULTATION ---
DATE: 07/26/2019 REASON FOR CONSULTATION: Cardiology was consulted for chest pain. HISTORY OF PRESENT ILLNESS: Ms. Rodriguez is an 78-year-old lady with known history of coronary artery disease, ischemic cardiomyopathy, hypertension, chronic renal failure on dialysis, who had chest discomfort, which she describes as pressure-like sensation with some radiation to the left arm. Came to the emergency room, was admitted. At the time of my examination, the patient was pain-free. The patient had a cardiac catheterization on 10/29/2018. PTCA was done to the diagonal artery. LAD had mild luminal irregularities. RCA was large and dominant with luminal irregularities. History of non ST-elevation LA. Subsequently, the patient underwent a stress test in January, which did not reveal any evidence of inducible ischemia. There was a moderate-sized fixed defect in the anterolateral wall, suggestive of scar. She has been taking her medications regularly. REVIEW OF SYSTEMS: A 14-point review of systems was done. GI: There is no history of nausea, vomiting, or diarrhea. There is no history of hematemesis or melena. Central Nervous System: No focal weakness to suggest a CVA or TIA. Genitourinary: There is no dysuria or hematuria. PAST MEDICAL HISTORY: 1. Atrial fibrillation, chronic. She underwent cardioversion in 2019. However, she is back in atrial fibrillation. 2. Chronic renal insufficiency, end-stage renal disease, on dialysis. 3. Diabetes. 4. Hyperlipidemia. 5. Ischemic cardiomyopathy, ejection fraction of 40% to 45%. 6. Non-Q-wave myocardial infarction with balloon angioplasty to diagonal artery as mentioned above on 10/29/2018. HOME MEDICATIONS: Include amiodarone 200 mg a day, amlodipine 10 mg a day, atorvastatin 40, Coreg 25 b.i.d., Eliquis 2.5 mg p.o. b.i.d., NovoLog as directed, Plavix 75 mg a day, Prevacid, potassium supplements. PHYSICAL EXAMINATION: Vital Signs: Blood pressure was 123/85. Neck: Jugular venous pressure was normal. Heart: First and second heart sounds were heard. There was no S3 gallop. Respiratory: Normal air entry. There are no crepitations or rhonchi. Abdomen: Soft, nontender. There was no guarding or rigidity. Bowel sounds were heard. Central Nervous System: Alert and oriented. Was moving all 4 extremities. Extremities: No edema. LABORATORY DATA: Sodium 140, potassium 3.9, BUN 45, creatinine 2.7. Cardiac enzymes negative. ProBNP elevated at 18,003. Hematology: Hemoglobin 10.7, hematocrit 33, WBCs 6.6, with a platelet count of 194,000. ASSESSMENT AND PLAN: Ms. June Rodriguez is an 78-year-old lady with known history of coronary artery disease, underwent balloon angioplasty to the diagonal artery in 2019, has ischemic cardiomyopathy, hypertension, hyperlipidemia, diabetes, comes with complaints of chest discomfort. Her cardiac enzymes are negative. RECOMMENDATIONS: 1. I will add Ranexa 500 mg to her medical regimen. Stress test earlier this year did not reveal any evidence of ischemia. This was after she had the angioplasty in 01/2019. 2. She has hypertension and cardiomyopathy. Continue with Coreg and amlodipine. 3. Chronic atrial fibrillation. Underwent cardioversion in 2019. She is back in atrial fibrillation. She is on amiodarone and Eliquis. I have not made any changes. 4. Hyperlipidemia. Continue with atorvastatin 40. 5. She has end-stage renal disease, on dialysis. 6. Diabetes. Continue with recommendations as planned. Thank you for the consult. cc: Gagandeep Crenshaw MD
--- NOTE | 2019-07-26 18:22 | HISTORY AND PHYSICAL ---
PRIMARY CARE PROVIDER: Dr. Matthew Henning. HOME COMPANION: Dr. Putnam in [place]. AOC DIRECTOR COMBAT OPERATIONS OFFICER: Dr. Caceres. DATE AND TIME: 07/26/2019 at 0730. CHIEF COMPLAINT: Chest pain. HISTORY OF PRESENT ILLNESS: Ms. Rodriguez is an 78-year-old female with a past medical history most notable for coronary artery disease status post recent PR in October 2018 with angioplasty, end-stage renal disease, on hemodialysis Wednesday, Wednesday, and Wednesday, diabetes mellitus, atrial fibrillation, and hypertension. Ms. Rodriguez stated that she laid down around 12 midnight last night on July 26, 2019. She states she had not fallen asleep yet but was lying down to go to sleep when she had a sudden onset of left-sided chest pain. She said the pain was sharp in nature. It lasted approximately 15 to 18 minutes. She stated it was nonradiating. She did report associated symptoms of shortness of breath, dizziness, feeling lightheaded. She stated that the pain did scare her because it felt like it did when she had her heart attack. She denies any recent similar episodes of chest pain. She did present to the ER for further evaluation. She was given aspirin 325 mg p.o. prior to arrival. The patient denies any other symptoms at this time. She denies any headache, cough, abdominal pain, nausea, vomiting, or diarrhea. She denies any dysuria or urinary frequency. She denies any pain, numbness, tingling, or swelling in extremities. Upon evaluation in the ER, she was noted to have a CK of 48, troponin of 0.032, and proBNP of 18,003. The patient has end-stage renal disease. Her BUN was 42, creatinine was 2.6, GFR is 18. She reports she received her last dialysis treatment on Wednesday and did complete the entire treatment. She reports that she does still produce a fair amount of urine. A chest x-ray performed in the ER did show cardiomegaly with pulmonary edema. EKG showed atrial fibrillation, rate of 74, QTc of 461. Reportedly the patient was noted to be in atrial fibrillation in transport by EMS. They also report that she had an 8 beat run of ventricular tachycardia. Unfortunately, I do not have any rhythm strips to confirm that from EMS. The patient does have a history of chronic atrial fibrillation. That is what she is in now. The rate is controlled. Given her history of end-stage renal disease, now having some pulmonary edema as well as chest pain, we will admit her for further treatment and evaluation. REVIEW OF SYSTEMS: A 14 point review of systems was conducted with the patient and all were negative except for pertinent positives mentioned above in HPI. PAST MEDICAL HISTORY: 1. Recent myocardial infarction in October of 2018 with angioplasty. 2. End-stage renal disease with hemodialysis on Mondays, Wednesdays, and Fridays. 3. Hypertension. 4. Diabetes mellitus. 5. Atrial fibrillation. 6. Situational depression. 7. Anxiety. 8. History of multiple vertebral fractures. She is followed by Dr. Reynoso in [place]. PAST SURGICAL HISTORY: 1. Hysterectomy. 2. Appendectomy. 3. Left eye surgery. 4. PR status post angioplasty. 5. Previous right upper chest wall tunneled dialysis catheter. 6. Placement of a left upper arm AV fistula. SOCIAL HISTORY: The patient is a former smoker. She did smoke from age 14 to age 48 and this is when she quit. For the last several years she reported that she smoked up to 4 packs per day. She denies any alcohol or illicit drug use. She is . FAMILY HISTORY: Positive for her mother having a history of heart disease, diabetes mellitus, and stroke. Her father had a history of heart disease. ALLERGIES: Patient has no known allergies. HOME MEDICATIONS: This was obtained verbally from the patient. She was alert and oriented to person, place, time, and situation. 1. Amiodarone 200 mg p.o. daily. 2. Amlodipine 10 mg p.o. daily. 3. Eliquis 2.5 mg p.o. b.i.d. 4. Eliquis 2.5 mg p.o. b.i.d. 5. Aspirin 81 mg p.o. daily. 6. Atorvastatin 40 mg p.o. daily. 7. Coreg 25 mg p.o. b.i.d. 8. [place] 5 mg 1 tablet p.o. q.12 hours p.r.n. for pain. 9. NovoLog FlexPen 5 units subcutaneously b.i.d. with breakfast and dinner. 10. Levemir 25 units subcutaneous at bedtime. 11. Sertraline 100 mg p.o. daily. 12. Vitamin B complex 1 tablet p.o. daily. DIAGNOSTIC DATA: White blood cell count is 6,680, hemoglobin 10.7, hematocrit 33.8, platelet count is 194,000. PT 15.6, INR 1.22. Sodium 135, potassium 3.8, chloride 95, serum bicarb is 22, BUN 42, creatinine 2.6 with a GFR of 18, glucose 237, calcium 9.5, magnesium is 2. Liver function tests within normal limits except for AST is elevated at 47 and alkaline phosphatase is elevated at 168. CK 48. Troponin 0.032. ProBNP is 18,003. Urinalysis was obtained via clean catch. It was positive for protein. It was negative for glucose, ketones, blood, nitrites, leukocytes, or bacteria. EKG showed atrial fibrillation at a rate of 74 with a QTc of 461. Chest x-ray did show cardiomegaly with mild pulmonary edema. PHYSICAL EXAMINATION: VITAL SIGNS: Temperature 97.9 degrees, heart rate 63, respirations 19, blood pressure is 107/55, oxygen saturation is 98% on nasal cannula at 2 L. GENERAL: Ms. Rodriguez is a very pleasant, 78-year-old female. She was resting in the ER stretcher with her eyes closed upon my initial arrival to the room, though was easily arousable with verbal stimulation. Once awoken, she was alert and oriented, able to answer questions appropriately. HEENT: Head is atraumatic, normocephalic. Pupils are equal, round, reactive to light, were 3 mm bilaterally and brisk. Oral mucosa is moist. Oropharynx clear. NECK: Supple. Trachea midline. There is some slight JVD noted upon examination. CARDIOVASCULAR: The patient has S1, S2 present. No murmurs, gallops, rubs appreciated. Irregularly irregular rhythm that is maintaining in the 60s. PULMONARY: Patient has symmetrical chest expansion bilaterally. Lung sounds were clear to auscultation in bilateral full [place]. ABDOMEN: Soft, nontender. Does not appear to be distended, though patient does have a slightly protuberant abdomen noted. Bowel sounds are present in all 4 quadrants, were normoactive. EXTREMITIES: No cyanosis noted. The patient does have some trace edema noted in bilateral lower extremities. Pulse, motor, and sensory is intact in all extremities. Radial and pedal pulses are 2+ bilaterally. INTEGUMENTARY: Patient's skin is pink, warm, and dry. NEUROLOGICAL: Patient is alert and oriented to person, place, time, and situation. She is able to move all extremities. There were no focal neurological deficits noted. ASSESSMENT AND PLAN: 1. Chest pain. For further evaluation of this we will continue with a series of cardiac enzymes. We will repeat an EKG in the morning. The patient just did have an echocardiogram performed in December of 2018. She did receive a full-dose aspirin prior to arrival to the ER. We will continue with her 81 mg aspirin daily plus we will continue her regular cardiac medications as well. Her troponin is a little elevated, though she does have end-stage renal disease. This could be secondary to this, though we will could continue to trend this. We will monitor closely. She will be on continuous cardiac telemetry. The patient is denying any chest pain at present. 2. Coronary artery disease status post angioplasty. We will continue with her regularly prescribed cardiac medications as mentioned above. 3. Diabetes mellitus. We will continue with her Levemir at night. We have also placed her on a sliding scale regular insulin per low-dose protocol. Will do pattern fingerstick blood sugars. 4. Atrial fibrillation. We will continue the patient's amiodarone and Coreg. Now heart rate is controlled in the 60s and 70s. 5. Depression. We will continue her sertraline. 6. Hyperlipidemia. We will continue her atorvastatin. 7. Chronic anticoagulation secondary to atrial fibrillation. We will continue the patient's Eliquis. 8. Deep vein thrombosis prophylaxis will be provided with above-mentioned anticoagulant of Eliquis. The patient has been placed on the medical floor telemetry. She will have vital signs q.4 hours. We will perform strict intake and output, incentive spirometry. She will be n.p.o. until evaluated by Cardiology. She did receive 60 of Lasix in the ER. Unfortunately, I do not know how much urine output she had. Her intake and output was not documented. The patient states that she did go to the bathroom a lot and does feel better. Her lung sounds do sound clear at this time. She is not dyspneic and not tachypneic. We will repeat a BMP, magnesium, and a series of cardiac enzymes later on this morning. We have also added on a TSH and hemoglobin A1c. Further orders and recommendations pending hospital course, diagnostic studies, and physician evaluation. Dictated by BRAD Berry for James Spangler MD I have performed a face to face diagnostic evaluation. Labs/ Xray- reviewed, Exam- Chest- clear, CV- regular. A/P- Chest Pain- Admit, Cardiac work up, ASA, Cardiology consult. Dr. Spangler cc: James Spangler MD [facility]
[2019-07-26] MEDS: RANEXA PO SCH ×2 (18:53→21:52)
[2019-07-26] MEDS ORDERED: LEVEMIR SUBQ SCH (21:00)
[2019-07-26] MEDS: ELIQUIS PO SCH (21:52)
[2019-07-26] MEDS: COREG PO SCH (21:52)
--- NOTE | 2019-07-27 07:09 | PROGRESS NOTE ---
DATE: 07/26/2019 INTERVAL HISTORY: No acute events overnight. Her chest pain and shortness of breath had resolved. Her troponins have been unremarkable so far. Cardiology team recommended adding ranolazine or Ranexa. I saw patient in dialysis. She denies any chest pain or shortness of breath. She states she made a good amount of urine after receiving Lasix. VITAL SIGNS: Temperature 97.6 degrees, pulse 69, respiratory rate 18, blood pressure 120/80, saturating 98% on room air. PHYSICAL EXAMINATION: Not in acute distress. She does not have any wheeze, rhonchi, or crackles. Cardiovascular: S1, S2 normal. Irregularly irregular. No murmur or gallop. She has bilateral lower extremity edema. INPUT AND OUTPUT: She has -1.1 L. LABS: Suggestive of anemia, chronic kidney disease stage 5. MICROBIOLOGY: No data. IMAGING: Chest x-ray had cardiomegaly with mild pulmonary edema. ASSESSMENT AND PLAN: 1. Anginal chest pain with negative cardiac troponins and no electrocardiogram evidence of ST changes. Acute pulmonary edema could be a contributing factor, now resolved. 2. History of coronary artery disease, status post stent in October 2018. 3. Essential hypertension. 4. Chronic atrial fibrillation, on anticoagulation. 5. Chronic kidney disease stage 5, on Wednesday, Wednesday, Wednesday hemodialysis. 6. Anxiety. 7. Chronic gastroesophageal reflux disease. PLAN: Continue home medication. Monitor on telemetry unit. If the patient continues to do well, my plan is to discharge her home tomorrow. She is in agreement. All of her questions have been answered. cc: Domenic Perez MD
[2019-07-27] MEDS: HUMULIN R SUBQ SCH (07:16)
[2019-07-27 07:38] VITALS: BP 134/50
--- NOTE | 2019-07-27 07:45 | EKG Report ---
Test Performed on : 07/27/2019 07:01:19 AM Test Reason : chest pain Blood Pressure : / mmHG Vent. Rate : 080 BPM Atrial Rate : 119 BPM P-R Int : 000 ms QRS Dur : 090 ms QT Int : 436 ms P-R-T Axes : 000 -89 -48 degrees QTc Int : 502 ms Atrial fibrillation. with a competing junctional pacemaker. Left axis deviation Septal infarct (cited on or before 17-MAY-2018) Lateral infarct (cited on or before 17-MAY-2018) Abnormal ECG When compared with ECG of 26-JUL-2019 09:21, (Unconfirmed) Questionable change in QRS axis Nonspecific T wave abnormality, worse in Inferior leads Nonspecific T wave abnormality, improved in Anterolateral leads QT has lengthened Confirmed by Monica BOSS, Kenneth ([id number]) on 07/27/2019 8:39:23 AM
[2019-07-27] MEDS ORDERED: NORVASC PO SCH (09:00)
[2019-07-27] MEDS ORDERED: ZOLOFT PO SCH (09:00)
[2019-07-27] MEDS ORDERED: LIPITOR PO SCH (09:00)
[2019-07-27] MEDS ORDERED: VICON-C PO SCH (09:00)
[2019-07-27] MEDS ORDERED: CORDARONE PO SCH (09:00)
[2019-07-27] MEDS ORDERED: ASPIRIN EC PO SCH (09:00)
[2019-07-27] MEDS: COREG PO SCH (09:10)
[2019-07-27] MEDS: RANEXA PO SCH (09:11)
[2019-07-27] MEDS: ELIQUIS PO SCH (09:11)
--- NOTE | 2019-07-27 15:04 | PROVIDER PROGRESS NOTE ---
Progress Note Subjective: Pt up ambulating in room. Voices feeling good. No uremic complaints. Objective: temp 97.6, pulse 80, respirations 18, blood pressure 134/50, 02 sat 97% on 2 L nasal cannula. General: elderly white female ambulating in room in no acute distress. HEENT: a traumatic, normocephalic. Pupils equal and reactive. Trachea midline. Skin: stitches to right upper chest wall with erythema around edges. Neck: supple, no JVD observed sitting in an upright position. Cardiology: irregular rate and rhythm. No murmur or gallop. Respiratory: clear with equal air excursion bilaterally abdomen: soft, nontender, nondistended. Bowel sounds active. : none inspected Extremities: trace edema to bilateral lower extremities. Neurological: alert and oriented to person, place, and time. Labs: input 0, output 1550 Impression: Chronic kidney disease 5D. She had her routine hemodialysis treatment yesterday with no complications. Blood pressure. In target. Fluid volume. Euvolemic on exam. Anemia. Low but stable. Does not meet transfusion criteria. Electrolytes and acid base balance. In target. Nutrition. Voices eating dinner but nothing is charted in I/Os, staff is unable to tell me. Please add renal to diabetic diet. Ambulation. Ambulating in room. Medication review.
--- NOTE | 2019-07-28 15:25 | DISCHARGE SUMMARY ---
ADMISSION DATE: 07/26/2019 DISCHARGE DATE: 07/27/2019 DISCHARGE DISPOSITION: Home. DISCHARGE CONDITION: Hemodynamically stable. The patient denies any chest pain, shortness of breath or palpitation. She was advised about taking her Lasix as prescribed and follow up with her regular heart doctor within a week's time. All of her questions were answered. DISCHARGE DIAGNOSES: 1. Anginal chest pain. 2. Shortness of breath, likely because of acute pulmonary edema. 3. Acute pulmonary edema, likely related to missing Lasix dose as she ran out of it as well as volume overload in the setting of chronic kidney disease stage 5.. OTHER DIAGNOSES: 1. Essential hypertension. 2. Chronic atrial fibrillation on anticoagulation. 3. Chronic kidney disease stage 5, on Wednesday, Wednesday, Wednesday hemodialysis. The patient still makes urine every day. 4. Anxiety. 5. Chronic gastroesophageal reflux disease. 6. History of coronary artery disease status post stent in October 2018. DISCHARGE MEDICATIONS: 1. Amiodarone 200 mg daily. 2. Amlodipine 10 mg daily. 3. Carvedilol 25 mg b.i.d.. 4. Aspirin 81 mg daily. 5. Apixaban 2.5 mg b.i.d. 6. Detemir 25 units subcutaneous at nighttime. 7. Atorvastatin 40 mg daily. 8. Hydrocodone acetaminophen 1 tablet every 12 hours. 9. Insulin aspart 5 units subcutaneously b.i.d. 10. Sertraline 100 mg daily. 11. Vitamin B complex 1 tablet daily. 12. Ranolazine 500 mg b.i.d.. VITALS: At time of discharge temperature 97.6 degrees, pulse 80, respiratory 18, blood pressure 130/50, saturating 97% on 2 L nasal cannula. PHYSICAL EXAMINATION: Not in acute distress. HEENT: Oral cavity is moist. Lungs: Air entry bilaterally equal, no wheeze or crackles. Cardiovascular: S1, S2 normal. No murmur or gallop. The heart rhythm is irregular. Abdomen: Soft nontender. Extremities: Mild bilateral lower extremity edema. She is alert and oriented x3. Not in acute distress. LABS: During hospital admission hemoglobin of 10.7 platelet of 194,000. Her BUN was 45, creatinine 2.7, blood glucose 124. Her troponins were showing flat trend of 0.03. No microbiological data. IMAGING: On presentation: Chest x-ray had suggested cardiomegaly with mild pulmonary edema. Renal ultrasound had increased renal echo structure consistent with medical renal disease and small scattered renal cyst. Electrocardiogram on presentation had atrial fibrillation with controlled ventricular response. HOSPITAL COURSE SUMMARY: Ms. Mcqueen is 78 years old lady with past medical history of coronary artery disease and myocardial infarction October 2018 requiring angioplasty , chronic atrial fibrillation on anticoagulation, chronic kidney disease stage 5, on Wednesday, Wednesday, Wednesday hemodialysis, came in with chief complaints off pressure-like feeling substernal, associated with shortness of breath at about 12 midnight. She was lying when she was lying down in the bed. It was located in the center of the chest and left side, sharp in nature without any radiation. It mimics her heart attack pain, so she decided to call the emergency room. While en route to the emergency room, she was given aspirin and she was given additional medication in the emergency room after which her chest pain had resolved. She was admitted for further management and Cardiology team was consulted. Cardiology team evaluated the patient. Her troponins had flat trend. EKG had chronic atrial fibrillation without new ST-T changes. She had a nuclear medicine stress test in January 2019 which did not detect any evidence of ischemia. It was thought that her symptoms were related to acute pulmonary edema. Apparently, patient had missed doses of Lasix for about 2 to 3 days prior to presentation as she had run out of it and on presentation she did have pulmonary edema. She was given Lasix in the emergency room and she also received dialysis the next day. On the date of discharge, the patient did not have shortness of breath or chest pain. She was also started on ranolazine as per Cardiology recommendation. At the time of discharge, she is alert, oriented without any symptoms so she was advised to take her Lasix regularly and that she should have follow up with her regular v belt builder, which she agreed to. TIME SPENT: More than 30 minutes time was spent in care of this patient. The patient's family were at bedside. Their questions have been satisfactorily answered. cc: Domenic Perez MD
== END 2019-07-27 13:43 | disposition home or self-care (01) | DRG 302 ==
LOC: SUPCPDRO → ED 01:50 → SUATTDRO 09:21 → EDIPHOLD 09:21 → 3N 09:52
PROVIDERS: ATTEND Internal Medicine